=== PATIENT | female | born 1995 | race African-American/Black ===

== ENCOUNTER 2022-10-25 18:08 | Emergency (ER) | payer OTHER, SELFPAY ==
[2022-10-25 18:12] VITALS: BP 112/77; PULSE 65; RESP 18; TEMP 35.9; O2SAT 97; BMI 44.4
--- NOTE | 2022-10-25 18:37 | ED_ITS ---
HPI - General Adult General Time Seen by Provider: 18:37 Date Seen: 10/25/22 Chief complaint: Ear/Nose/Throat Problem Stated complaint: Swollen tonsils, throat issue Time Seen by Provider: 10/25/22 18:20 History of Present Illness HPI narrative: 27-year-old generally healthy female presents to the ER today with her fiance with concern for sore throat, inflamed, painful tonsils, and painful swallowing. She notes that she has had some mild trouble with swallowing for about a year so but in particular she has had a bad sore throat since this morning. She had mild sore throat yesterday and bad pain which she tried to swallow breakfast this morning. She looked at her throat with a flashlight and noticed that both of her tonsils were enlarged, reddened, and will had white spots on them. She has had some chills afternoon but no objective fevers. Really minimal cough but she eating that is more just coughing because all tonsils are large. No nasal congestion. No abdominal pain, nausea, vomiting. No rash. No known exposure t o strep. Her mother recently had bronchitis. She is otherwise healthy. No diabetes, malignancy, immunosuppression. No regular medications. Related Data Home Medications Medication Instructions Recorded Confirmed escitalopram oxalate 20 mg tablet 20 mg PO DAILY 10/25/22 10/25/22 (Lexapro) Allergies Allergy/AdvReac Type Severity Reaction Status Date / Time amoxicillin Allergy Mild Nausea Verified 10/25/22 18:17 Review of Systems Narrative: negative PFSH PFS Social History Smoking Status: Never smoker How often do you have a drink containing alcohol: 4 or more times a week AUDIT-C Alcohol total score: 4 Non-prescribed substance use: other Non-prescribed substance use details: delta 8 Exam Narrative: Exam Narrative: Constitutional: Appears well-developed and well-nourished. Alert. Conversant. Non toxic. HENT: Head: Atraumatic. Nose: Nose normal. Mouth/Throat: Oral mucosa is clear and moist. Tongue normal. Gums and dentition normal. no trismus. Uvula midline. Airway widely patent. Phonation normal. She has bilateral tonsillar enlargement with bilateral white exudates and bilateral tonsillar erythema. No petechiae or vesicles. No evidence for PERSONAL SECURITY SPECIALIST or RPA. Posterior wall of the oropharynx appears slightly erythematous but otherwise normal. Eyes: Conjunctivae normal. EOM normal. Pupils equal, round, and reactive to light. No scleral icterus. Neck: Normal range of motion. Neck supple. No tracheal deviation present. Cardiovascular: Normal rate, regular rhythm. No gallop. No friction rub. No murmur heard. Pulmonary/Chest: Effort normal. No stridor. No respiratory distress. No wheezes. No rales. No rhonchi . No tenderness. Abdominal: Soft. Bowel sounds normal. No distension. No mass. No tenderness. No HSM. No rebound. No guarding. Musculoskeletal: RUE: Normal range of motion. No tenderness. No deformity LUE: Normal range of motion. No tenderness. No deformity RLE: Normal range of motion. No edema. No tenderness. No deformity LLE: Normal range of motion. No edema. No tenderness. No deformity Lymph: No cervical adenopathy. Neurological: Alert and oriented to person, place, and time. Normal strength. CN II-VII intact. No sensory deficit. GCS eye subscore is 4. GCS verbal subscore is 5. GCS motor subscore is 6. Normal coordination Skin: Skin is warm and dry. No rash noted. No pallor. Normal capillary refill. Psychiatric: Normal mood. Normal affect. Const: Vital Signs, click to edit/add: Vital Signs - 24 hr 10/25/22 18:12 Temperature 96.7 F L Pulse Rate [Pulse Oximeter] 65 Respiratory Rate 18 Blood Pressure [Ri ght Upper Arm] 112/77 Pulse Oximetry 97 Oxygen Delivery Me thod Room Air Course Vital Signs Vital signs: Initial Vital Signs Temperature 96.7 F L 10/25/22 18:12 Temperature Source Temporal Artery Scan 10/25/22 18:12 Pulse Rate 65 10/25/22 18:12 Pulse Rhythm Regular 10/25/22 18:12 Respiratory Rate 18 10/25/22 18:12 Blood Pressure 112/77 10/25/22 18:12 Blood Pressure Mean 88 10/25/22 18:12 Blood Pressure Position Sitting 10/25/22 18:12 Pulse Oximetry 97 10/25/22 18:12 Oxygen Delivery Method Room Air 10/25/22 18:12 Vital Signs Temperature 96.7 F L 10/25/22 18:12 Pulse Rate 65 10/25/22 18:12 Respiratory Rate 18 10/25/22 18:12 Blood Pressure 112/77 10/25/22 18:12 Pulse Oximetry 97 10/25/22 18:12 Oxygen Delivery Method Room Air 10/25/22 18:12 Temperature 96.7 F L 10/25/22 18:12 Pulse Rate 65 10/25/22 18:12 Respiratory Rate 18 10/25/22 18:12 Blood Pressure 112/77 10/25/22 18:12 Pulse Oximetry 97 10/25/22 18:12 Oxygen Delivery Method Room Air 10/25/22 18:12 Medical Decision Making MDM Narrative Medical decision making narrative: This patient presented with sore throat and clinical evidence of pharyngitis. She has bilateral tonsillar erythema with exudate. She does not have ?kissing? tonsils or any signs of airway compromise. The rapid strep test is negative, and formal culture has been set up in the lab. There is no clinical evidence of peritonsillar abscess, retropharyngeal abscess, Lemierre's Syndrome, epiglottis, or Franck's angina. The etiology is most likely viral. No other vescular lesions to suggest HFM. The patient's symptoms are consistent with viral pharyngitis. I have recommended treatment with analgesics, and we will await formal culture results. If the culture is positive, an ED physician will call the patient to initiate anti-microbial therapy. Return if increasing pain, change in voice, neck pain, vomiting, fever, or shortness of breath. Follow-up with primary physician if not improving in 3-5 days. Lab Data Labs: Lab Results 10/25/22 Range/Units Unknown Group A Strep DNA NOT DETECTED (Not Detectd) Discharge Plan Discharge Clinical Impression: Pharyngitis Patient Disposition: Home, Self-Care Condition: Stable Instructions: Pharyngitis (ED) Additional Instructions: Please come back to the ER right away if you have worsening swelling in her tonsils, difficulty swallowing, high fever, trouble breathing, or other concerns. If your not complete the improved within 3-5 days, please recheck with the ER or with your regular doctor. Activity Level: No Restrictions Prescriptions: No Action escitalopram oxalate [Lexapro] 20 mg tablet 20 mg PO DAILY Follow Up/Referrals: Provider,Not a Local [Primary Care Provider] - Stand Alone Forms: [employer] Info Instructions
[2022-10-25 19:08] LABS: Strep A DNA Probe* NOT DETECTED (Not Detectd)
== END 2022-10-25 20:16 | disposition home or self-care (01) ==
PROVIDERS: Emergency Provider Emergency Medicine
DX: J02.9 Acute pharyngitis, unspecified (principal)
CPT/HCPCS: 87651; 99282; 99283

== ENCOUNTER 2024-06-04 20:50 | Outpatient (CLI) | payer OTHER, SELFPAY ==
[2024-06-04 21:40] VITALS: BP 135/65; PULSE 93; RESP 18; TEMP 36.6
[2024-06-04] MEDS: ACETAMINOPHEN 500 MG TABLET 1000 MG PO (22:17)
[2024-06-04] MEDS: ONDANSETRON ODT 4 MG TAB PO (22:17)
[2024-06-04 22:26] LABS: Appearance Urine Slightly Cloudy (Clear); Bilirubin Urine Negative (Negative); Blood Urine Negative (Negative); Color Urine Yellow (Yellow); Glucose Urine Negative (Negative); Ketones Urine Trace (Negative); Leukocyte Esterase Urine Negative (Negative); Nitrite Urine Negative (Negative); Protein Urine 1+ (Negative); Urobilinogen Urine 0.2 (0.2-1.0); pH Urine 7.5 (5.0-8.5)
[2024-06-04 22:33] LABS: Clue Cells No Clue Cells Seen (None Seen); Trichomonas No Trichomonas Seen (None Seen); Yeast No Yeast Seen (None Seen)
[2024-06-04 22:33] LABS: Amorphous Sediment Urine Many; Bacteria Urine Many; RBC Urine 0-2 (0-2); Squamous Epithelial Cell Urine Many (None-Few); WBC Urine 0-2 (0-5)
--- NOTE | 2024-06-04 23:29 | PC.OBNST ---
NST Note NST Note Start: 06/04/24 21:08 Freq: ONCE Status: Active Protocol: Document 06/04/24 23:27 MARIUM (Rec: 06/04/24 23:29 MRAIUM [id number]) NST Note 1 EDC 09/14/24 Gestational Age In Weeks & Days 25 Weeks & 3 Days Patient Presented with Complaint(s) of Pain,Nausea and vomiting If Pain, describe location Vaginal pain on and off for past several weeks Other Complaints Nausea and vomiting since start of . Appropriate for Gestational Age Yes CHARAN Daniels RN Date 06/04/24 Appropriate for Gestational Age Yes CHARAN Bolanos MD Date 06/04/24 OB NST charge No Complete NST Note via Write Note Yes The provider's electronic signature indicates the NST is reactive/appropriate for gestational age. *Note to provider: If an addendum is required, open the patient's chart and click on the note under the Nurse/Allied Health tab.
--- NOTE | 2024-07-03 17:46 | PC.OBNST ---
NST Note NST Note Start: 06/04/24 21:08 Freq: ONCE Status: Discharge Protocol: Document 06/04/24 23:27 MARIUM (Rec: 06/04/24 23:29 MARIUM [id number]) NST Note 1 EDC 09/14/24 Gestational Age In Weeks & Days 25 Weeks & 3 Days Patient Presented with Complaint(s) of Pain,Nausea and vomiting If Pain, describe location Vaginal pain on and off for past several weeks Other Complaints Nausea and vomiting since start of . Appropriate for Gestational Age Yes RN Kurt Daniels RN Date 06/04/24 Appropriate for Gestational Age Yes CHARAN Bolanos MD Date 06/04/24 OB NST charge Yes Complete NST Note via Write Note Yes The provider's electronic signature indicates the NST is reactive/appropriate for gestational age. *Note to provider: If an addendum is required, open the patient's chart and click on the note under the Nurse/Allied Health tab.
== END 2024-06-04 23:06 | disposition home or self-care (01) ==
LOC: OB OUT 20:53 → OB 21:05
PROVIDERS: PCP Student in an Organized Health Care Education/Training Program; Visit Provider Surgery
DX: O26.893 Other specified pregnancy related conditions, third trimester (principal); R11.2 Nausea with vomiting, unspecified; R10.2 Pelvic and perineal pain; Z3A.25 25 weeks gestation of pregnancy
CPT/HCPCS: 59025; 81001; 81003; 87086; 87210; G0463; A9270

== ENCOUNTER 2024-07-02 00:56 | Observation (INO) | payer OTHER, SELFPAY ==
[2024-07-01] VITALS (7 sets, daily range): BP systolic 130–147; BP diastolic 78–96; PULSE 86–102; TEMP 36.9; O2SAT 96
[2024-07-01 23:06] LABS: Blood Urea Nitrogen* 8 mg/dL (5-24); Creatinine* 0.6 mg/dL (0.5-1.5); Estimated Glomerular Filt Rate 126 ml/min; Hematocrit 35.5 % (33.0-51.0); Hemoglobin* 12.1 gm/dL (12.0-16.0); Mean Corpuscular HGB Conc 34 gm/dL (32-36); Mean Corpuscular Hemoglobin 29 pg (26-34); Mean Corpuscular Volume 85 fL (80-100); Platelet Count* 267 K/uL (140-440); Red Blood Count 4.16 m/uL (4.00-5.20); White Blood Count* 10.97 K/uL (4.50-11.00)
[2024-07-01 23:07] LABS: Alanine Aminotransferase* 24 U/L (4-35); Aspartate Amino Transferase* 29 U/L (12-35)
[2024-07-01 23:14] LABS: Slide Review Reflex No
[2024-07-02] VITALS (9 sets, daily range): BP systolic 119–146; BP diastolic 67–95; PULSE 86–98; RESP 16–20; TEMP 36.7–37.3; O2SAT 94–96
--- NOTE | 2024-07-02 00:21 | PM.OBLDTN ---
OB - Triage/Final Diagnosis Visit Information Time Seen by Provider: 00:21 Date Seen: 07/02/24 Narrative: The patient is a 29 year old 1 para 0 at 29+3 weeks gestation by 7 wk US, who presents with elevated blood pressures and pr/cr 1.5 early at routine clinic visit earlier today. complicated by the following: Patient was seen at 0745 this AM for routine care visit by Dr. Bethany Walsh, where she had BP 137/94 and 134/92, previously normotensive. Evaluation Laboratory results: Laboratory Tests 07/01/24 Range/Units 22:38 WBC 10.97 (4.50-11.00) K/uL RBC 4.16 (4.00-5.20) m/uL Hgb 12.1 (12.0-16.0) gm/dL Hct 35.5 (33.0-51.0) % MCV 85 (80-100) fL MCH 29 (26-34) pg MCHC 34 (32-36) gm/dL Plt Count 267 (140-440) K/uL BUN 8 (5-24) mg/dL Creatinine 0.6 (0.5-1.5) mg/dL Estimated GFR 126 ml/min AST 29 (12-35) U/L ALT 24 (4-35) U/L Vital signs: Vital Signs - 24 hr 07/01/24 21:47 07/01/24 21:54 07/01/24 21:54 Temperature Pulse Rate 93 Blood Pressure 147/90 H Pulse Oximetry 96 07/01/24 21:54 07/01/24 22:17 07/01/24 22:17 Temperature 98.4 F Pulse Rate 94 Blood Pressure 130/83 Pulse Oximetry 07/01/24 22:51 07/01/24 22:51 07/01/24 23:02 Temperature Pulse Rate 101 H Blood Pressure 141/78 H 140/85 H Pulse Oximetry 07/01/24 23:02 07/01/24 23:18 07/01/24 23:18 Temperature Pulse Rate 86 90 Blood Pressure 134/86 Pulse Oximetry 07/01/24 23:32 07/01/24 23:32 Temperature Pulse Rate 102 H Blood Pressure 143/96 H Pulse Oximetry
--- NOTE | 2024-07-02 00:48 | P.OBHP_ITS ---
OB - H&P; HPI Antepartum History of Present Illness Time Seen by Provider: 00:48 Date Seen: 07/02/24 Chief complaint: Maternity Narrative: Alma Scott is a 29 year old female at 29+3 weeks by 7 wk US who presents with elevated blood pressures and proteinuria. complicated by the followin. Pre-gestational prediabetes. 1hr GTT 144 at 26w2d, 3h GTT normal (88,157,120,78) at 28w2d 2. Pre- BMI of 44. MPP on 04/29/2024. Follow-up growth US at 28 and 34-36 week and testing starting at 34 weeks. 3. Anxiety/depression. On venlafaxine and buspirone. Follows with psychiatry, had e-consult with psych in early . 4. Elevated BP with upward trend since 20 weeks. Elevated urine protein/creatinine ratio (0.4) at 20 wks, normal 24 hour urine, normal Ast/ALT/plt 5. Family history of congenital hearing loss. Routine hearing screening with early referral if fails. She was seen earlier today for routine visit by Dr. Bethany Walsh, at which time her blood pressures were 137/94 and 134/92, previously normotensive. Asymptomatic. Pre-eclampsia labs were collected, and her protein/creatinine ratio came back at 1.5 this evening. She was contacted by Dr. Walsh and directed to the Center for further evaluation. Here, she noted an about 10 minute episode of loss of her left lateral vision. Describes a dark spot covering about half of her visual field, only on the left. Only other visual changes this have been seeing stars with vomiting. Completed resolved thereafter, and has not recurred. Denies BAKER, RUQ pain, new or worsening SOB, or edema. She has been experiencing normal movement. History of Present Dating criteria: based on 1st trimester US only care: good care complications: preeclampsia complications comment: Meeting BP criteria and proteinuria Labs Blood type: O (+) positive Rubella: immune RPR/VDLR: nonreactive HBsAG: negative Narrative: Failed GCT, passed all values of 3 hour Review of Systems Status of ROS: Reports: 10 or more systems reviewed and unremarkable except as noted in History and below Meds Home Medications and Allergies Home Medications ?Medication ?Instructions ?Recorded ?Confirmed ?Type venlafaxine 75 mg capsule,extended 225 mg PO DAILY 09/12/23 07/01/24 History release 24 hr docosahexaenoic acid 1 cap PO DAILY 03/27/24 07/01/24 History aspirin 81 mg tablet,delayed 81 mg PO DAILY 06/04/24 07/01/24 History release (Adult Aspirin Regimen) docusate sodium 100 mg capsule 100 mg PO DAILY 06/04/24 07/01/24 History (Colace) polyethylene glycol 3350 17 gram 17 g PO DAILY 06/04/24 07/01/24 History oral powder packet pyridoxine (vitamin B6) 100 mg 100 mg PO DAILY 06/04/24 07/01/24 History tablet buspirone 10 mg tablet 10 mg PO BID 07/01/24 07/01/24 History doxylamine succinate 25 mg tablet 12.5 mg PO Q6H PRN 07/01/24 07/01/24 History (Unisom (doxylamine)) famotidine 20 mg tablet (Pepcid) 20 mg PO DAILY 07/01/24 07/01/24 History Allergies Allergy/AdvReac Type Severity Reaction Status Date / Time amoxicillin Allergy Mild Nausea Verified 03/27/24 11:41 clarithromycin Allergy Verified 03/27/24 11:41 OB - H&P: Exam Physical Exam: Vital signs: Temp Pulse BP Pulse Ox 98.4 F 102 H 143/96 H 96 07/01/24 21:54 07/01/24 23:32 07/01/24 23:32 07/01/24 21:47 Narrative: General appearance: Well-appearing adult female. Alert, oriented and appropriate. Sitting up in hospital bed. HEENT: EOMI, no conjunctival injection or discharge. MMM. Neck: Supple. CV: RRR, no rubs, murmurs or extra heart sounds. Pulm: CTAB, no wheezes, rales or rhonchi. Abdomen: Gravid. MSK: Moving all extremities. Ext: Warm and well-perfused. No LE edema. Skin: No rashes appreciated over exposed skin. Neuro: Grossly normal strength and sensation. No focal deficits. Patellar reflexes brisk. One beat of clonus in ankles bilaterally. Psych: Normal affect. Fetus (Single): Amniotic Membrane Status: intact Heart Rate Baseline: 125 Monitor Accelerations: Present (10x10) Monitor Decelerations: None Road Oiling Truck Driver Variability: Moderate (6-25) OB - Results Labs Labs: Short CBC 07/01/24 Range/Units 22:38 WBC 10.97 (4.50-11.00) K/uL Hgb 12.1 (12.0-16.0) gm/dL Hct 35.5 (33.0-51.0) % Plt Count 267 (140-440) K/uL BMP 07/01/24 22:38 BUN 8 Creatinine 0.6 Liver Function 07/01/24 Range/Units 22:38 AST 29 (12-35) U/L ALT 24 (4-35) U/L OB - A/P Antepartum Assessment and Plan (1) Pre-eclampsia during in third trimester, antepartum: Status: Acute Plan Meeting criteria for pre-eclampsia w/o severe features based on blood pressures and new proteinuria. Elevated pr/cr with new OB labs (0.4), but normal 24 hour urine, now with significant proteinuria (pr/cr 1.5). Remaining pre-eclampsia labs WNL. Episode of transient L lateral visual field deficit lasting about 10 minutes, now resolved. Denies BAKER, ongoing visual change or other neurologic symptoms. On exam, reflexes are brisk with one beat of clonus in ankles bilaterally. monitoring is reassuring. Discussed with ammonia refrigeration worker perinatologist, Dr. Stark. She feels that patient is not currently meeting criteria for severe features. Recommends 24 hour obs admission for further BP monitoring and for any progression of neurologic symptoms. Discussed with patient, who is in agreement. - Admit to obs - Q4 hour vitals and nursing assessments - Repeat pre-eclampsia labs in 12 hours - Initiate 24 hour urine collection - IV betamethasone x2 doses - NST TID - If any change in status meeting criteria for severe features, would initiate IV mag and arrange transfer to tertiary care facility
[2024-07-02] MEDS: BETAMETHASONE SOD PHOS/ACETATE 6 MG/ML ML 12 MG IM (01:44)
[2024-07-02 01:54] LABS: Total Protein Urine 16 mg/dL
[2024-07-02 01:55] LABS: Creatinine Urine 120.1 mg/dL; Protein Creatinine Ratio Urine 0.13 (0-0.19)
--- NOTE | 2024-07-02 01:58 | PC.OBNST ---
NST Note NST Note Start: 07/01/24 21:49 Freq: TID Status: Active Protocol: Document 07/02/24 01:56 AZUL (Rec: 07/02/24 01:58 AZUL No Response) NST Note 1 Para (# of births) 0 EDC 09/14/24 Gestational Age In Weeks & Days 29 Weeks & 3 Days High Risk Factors High Blood Pressure - Gestational Patient Presented with Complaint(s) of Other Other Complaints Elevated PCR in the clinic; elevated home blood pressures Reactive Yes Appropriate for Gestational Age Yes CHARAN Barrera, RN Date 07/02/24 Reactive Yes Appropriate for Gestational Age Yes CHARAN Mendoza RN Date 07/02/24 OB NST charge Yes Complete NST Note via Write Note Yes The provider's electronic signature indicates the NST is reactive/appropriate for gestational age. *Note to provider: If an addendum is required, open the patient's chart and click on the note under the Nurse/Allied Health tab.
[2024-07-02 10:16] LABS: Hematocrit 39.2 % (33.0-51.0); Hemoglobin* 13.2 gm/dL (12.0-16.0); Mean Corpuscular HGB Conc 34 gm/dL (32-36); Mean Corpuscular Hemoglobin 29 pg (26-34); Mean Corpuscular Volume 85 fL (80-100); Platelet Count* 288 K/uL (140-440); Red Blood Count 4.59 m/uL (4.00-5.20); White Blood Count* 10.43 K/uL (4.50-11.00)
[2024-07-02 10:22] LABS: Slide Review Reflex No
[2024-07-02 10:24] LABS: Alanine Aminotransferase* 33 U/L (4-35); Aspartate Amino Transferase* 32 U/L (12-35); Blood Urea Nitrogen* 6 mg/dL (5-24); Creatinine* 0.6 mg/dL (0.5-1.5); Estimated Glomerular Filt Rate 126 ml/min
--- NOTE | 2024-07-02 12:20 | PC.OBNST ---
NST Note NST Note Start: 07/01/24 21:49 Freq: TID Status: Active Protocol: Document 07/02/24 12:18 BRM (Rec: 07/02/24 12:20 BRM No Response) NST Note 1 Para (# of births) 0 EDC 09/14/24 Gestational Age In Weeks & Days 29 Weeks & 3 Days Patient Presented with Complaint(s) of Other Other Complaints Patient here for observation, due to possible pre-eclampsia Reactive Yes Appropriate for Gestational Age Yes CHARAN Kamara Date 07/02/24 Reactive Yes Appropriate for Gestational Age Yes CHARAN Ho Date 07/02/24 OB NST charge Yes Complete NST Note via Write Note Yes The provider's electronic signature indicates the NST is reactive/appropriate for gestational age. *Note to provider: If an addendum is required, open the patient's chart and click on the note under the Nurse/Allied Health tab.
--- NOTE | 2024-07-02 15:08 | CRLHL7_ITS ---
For Patients: As a result of the Century Cures Act, medical imaging exams and procedure reports are released immediately into your electronic medical record. You may view this report before your referring provider. If you have questions, please contact your health care provider. Indication: Visual field deficit. Technique: Multiplanar multisequence noncontrast MR images of the brain. Comparison: None. Findings: The ventricles and sulci are within normal limits for patient age. No mass effect or midline shift. No parenchymal signal abnormalities. No intracranial hemorrhage or pathologic extra-axial fluid collection. No diffusion restriction to suggest acute infarction The major arterial flow voids of the skull base are preserved. The globes are symmetric. Minimal ethmoid sinus mucosal thickening. Trace left mastoid fluid. Impression: Unremarkable noncontrast MRI of the brain. Dictated by Jose Choudhary MD @ 07/02/2024 5:04:18 PM (Electronically Signed)
--- NOTE | 2024-07-02 16:54 | PM.FPPN ---
Progress Note: A&P Assessment and plan (1) Pre-eclampsia during in third trimester, antepartum: Problem details: Preeclampsia without severe features at this time. Status: Acute Assessment and Plan: I have discussed with perinatology. - recommend 24 hours of monitoring BP and labs - low threshold to transfer with any severe features - repeat labs at 10pm tonight (2) Alteration in vision: Problem details: Unclear history. Status: Acute Assessment and Plan: - MRI brain per perinatology (3) with 29 completed weeks gestation: Problem details: Betamethasone given last night, will get 2nd dose tonight. Status: Acute Plan - will stay until at least morning 07/03 Time Spent With Patient Total time spent: 60 minutes spent with patient and coordination of care Subjective Subjective Time Seen by Provider: 07:30 Date Seen: 07/02/24 Principal diagnosis: Preeclampsia Interval history: Patient reports no headache, vision changes. She feels well. Some edema. She slept off and on overnight. She is tired. Patient describes visual field cut as missing part of left outside vision. She has not had recurrence of this (had 10-15 minutes of this en route to hospital) Exam Const: Vital Signs, click to edit/add: Vital Signs - 24 hr 07/01/24 21:47 07/01/24 21:54 07/01/24 21:54 Temperature Pulse Rate 93 Respiratory Rate Blood Pressure 147/90 H Pulse Oximetry 96 07/01/24 21:54 07/01/24 22:17 07/01/24 22:17 Temperature 98.4 F Pulse Rate 94 Respiratory Rate Blood Pressure 130/83 Pulse Oximetry 07/01/24 22:51 07/01/24 22:51 07/01/24 23:02 Temperature Pulse Rate 101 H Respiratory Rate Blood Pressure 141/78 H 140/85 H Pulse Oximetry 07/01/24 23:02 07/01/24 23:18 07/01/24 23:18 Temperature Pulse Rate 86 90 Respiratory Rate Blood Pressure 134/86 Pulse Oximetry 07/01/24 23:32 07/01/24 23:32 07/02/24 01:00 Temperature 98.2 F Pulse Rate 102 H Respiratory Rate Blood Pressure 143/96 H Pulse Oximetry 07/02/24 01:15 07/02/24 05:12 07/02/24 05:12 Temperature 98.1 F Pulse Rate 86 90 Respiratory Rate Blood Pressure 145/95 H 119/67 Pulse Oximetry 07/02/24 08:29 07/02/24 08:29 07/02/24 08:34 Temperature 98.9 F Pulse Rate 93 Respiratory Rate 16 Blood Pressure 134/88 Pulse Oximetry 95 07/02/24 12:56 07/02/24 12:57 07/02/24 12:57 Temperature 98.1 F Pulse Rate 91 Respiratory Rate 16 Blood Pressure 142/72 H Pulse Oximetry 94 96 Documenting provider has reviewed patient's vital signs: yes Common normals: no apparent distress, oriented x3 and alert General appearance: cooperative and well kempt Orientation/consciousness: Yes awake HENMT: Common normals: normocephalic Head and scalp: normocephalic Neck & C-Spine: Common normals: full ROM Resp: Common normals: normal respiratory effort and clear to auscultation bilaterally Auscultation: clear to auscultation bilaterally Cardio: Common normals: regular rate, regular rhythm and no murmurs Rate: regular rate Rhythm: regular rhythm GI: Common normals: soft to palpation, non-tender and no hepatosplenomegaly Palpation: soft and no hepatosplenomegaly Other: Gravid Neuro: Common normals: oriented x3 Sensorium/orientation: awake and alert Psych: Appearance: well kempt Skin: Rashes: no rashes
[2024-07-02 20:08] LABS: Hematocrit 38.1 % (33.0-51.0); Hemoglobin* 12.8 gm/dL (12.0-16.0); Mean Corpuscular HGB Conc 34 gm/dL (32-36); Mean Corpuscular Hemoglobin 29 pg (26-34); Mean Corpuscular Volume 86 fL (80-100); Platelet Count* 298 K/uL (140-440); Red Blood Count 4.44 m/uL (4.00-5.20); White Blood Count* 12.69 K/uL (4.50-11.00)
[2024-07-02 20:23] LABS: Alanine Aminotransferase* 31 U/L (4-35); Aspartate Amino Transferase* 36 U/L (12-35); Blood Urea Nitrogen* 10 mg/dL (5-24); Creatinine* 0.6 mg/dL (0.5-1.5); Estimated Glomerular Filt Rate 126 ml/min
[2024-07-02 20:28] LABS: Slide Review Reflex No
--- NOTE | 2024-07-02 21:43 | PC.OBNST ---
NST Note NST Note Start: 07/01/24 21:49 Freq: TID Status: Active Protocol: Document 07/02/24 21:42 AZUL (Rec: 07/02/24 21:42 AZUL Desktop) NST Note 1 Para (# of births) 0 EDC 09/14/24 Gestational Age In Weeks & Days 29 Weeks & 3 Days High Risk Factors High Blood Pressure - Gestational Patient Presented with Complaint(s) of Other Other Complaints Patient here for observation, due to possible pre-eclampsia Reactive Yes Appropriate for Gestational Age Yes CHARAN Barrera, RN Date 07/02/24 Reactive Yes Appropriate for Gestational Age Yes CHARAN Alvarenga RN Date 07/02/24 OB NST charge Yes Complete NST Note via Write Note Yes The provider's electronic signature indicates the NST is reactive/appropriate for gestational age. *Note to provider: If an addendum is required, open the patient's chart and click on the note under the Nurse/Allied Health tab.
[2024-07-03] VITALS (7 sets, daily range): BP systolic 127–145; BP diastolic 79–97; PULSE 81–94; TEMP 36.9–37.2; O2SAT 94–95
[2024-07-03 01:34] LABS: Total Protein Urine 12 mg/dL
[2024-07-03 01:35] LABS: Creatinine Urine 63.1 mg/dL; Protein Creatinine Ratio Urine 0.19 (0-0.19)
[2024-07-03 01:40] LABS: Collection Time Urine 24 Hours; Total Volume 24 Hour Urine 2450 ml; Urine Creatinine mg/24 Hour 1546 mg/Day
[2024-07-03] MEDS: BETAMETHASONE SOD PHOS/ACETATE 6 MG/ML ML 12 MG IM (01:47)
--- NOTE | 2024-07-03 02:35 | PC.OBNST ---
NST Note NST Note Start: 07/01/24 21:49 Freq: TID Status: Active Protocol: Document 07/03/24 02:35 [id number] (Rec: 07/03/24 02:35 AZUL Desktop) NST Note 1 Para (# of births) 0 EDC 09/14/24 Gestational Age In Weeks & Days 29 Weeks & 4 Days High Risk Factors High Blood Pressure - Gestational Patient Presented with Complaint(s) of Other Other Complaints Patient here for observation, due to possible pre-eclampsia Reactive Yes Appropriate for Gestational Age Yes CHARAN Barrera, RN Date 07/03/24 Reactive Yes Appropriate for Gestational Age Yes CHARAN Mendoza RN Date 07/03/24 OB NST charge Yes Complete NST Note via Write Note Yes The provider's electronic signature indicates the NST is reactive/appropriate for gestational age. *Note to provider: If an addendum is required, open the patient's chart and click on the note under the Nurse/Allied Health tab.
[2024-07-03 06:32] LABS: Hematocrit 36.8 % (33.0-51.0); Hemoglobin* 12.2 gm/dL (12.0-16.0); Mean Corpuscular HGB Conc 33 gm/dL (32-36); Mean Corpuscular Hemoglobin 29 pg (26-34); Mean Corpuscular Volume 86 fL (80-100); Platelet Count* 272 K/uL (140-440); Red Blood Count 4.26 m/uL (4.00-5.20); White Blood Count* 12.08 K/uL (4.50-11.00)
[2024-07-03 06:33] LABS: Slide Review Reflex No
[2024-07-03 07:07] LABS: Alanine Aminotransferase* 27 U/L (4-35); Aspartate Amino Transferase* 28 U/L (12-35); Creatinine* 0.6 mg/dL (0.5-1.5); Estimated Glomerular Filt Rate 126 ml/min
--- NOTE | 2024-07-03 09:51 | CRLHL7_ITS ---
For Patients: As a result of the Century Cures Act, medical imaging exams and procedure reports are released immediately into your electronic medical record. You may view this report before your referring provider. If you have questions, please contact your health care provider. Indication: Abnormal non stress test. Technique: Sonography of the gravid uterus was performed. The study was performed limited to a biophysical profile as discussed below Comparison: No prior relevant examinations Findings: The cervix was not visualized. position is breech. The single deepest pocket is 4.6 centimeters. The placenta is anterior. There is no apparent previa The biophysical profile score is abnormal. The score is 4/8. Zero points for gross body movements and also for respiratory activity. heart rate is 129 beats per minute. Placental S/D ratios are 2.4 and 2.6. Less than 4 is considered normal at this gestational age. Gestational age stated by LMP 29 weeks and 4 days. Biometry and anatomy was not repeated on this exam Impression: 1. Single live intrauterine that is breech. heart rate is 129 beats per minute. 2. The single deepest pocket is 4.6 centimeters. 3. Anterior placenta. 4. Normal placenta S/D ratios 5. The biophysical profile score is 4/8. Zero points for gross body movements and also for respiratory activity. 6. The cervix was not visualized. Dictated by Onur Castillo MD @ 07/03/2024 11:02:36 AM (Electronically Signed)
[2024-07-03] MEDS: LABETALOL HCL 100 MG TABLET 200 MG PO (10:06)
--- NOTE | 2024-07-03 10:31 | P.DS_ITS ---
DS: Providers Provider Date of admission: 07/02/24 00:56 Primary care physician: Bethany Walsh MD Admitting Clinician: Tana Lamas MD Attending Physician on discharge: Tana Lamas MD DS: Diagnosis Discharge Diagnosis (1) Pre-eclampsia during in third trimester, antepartum: Status: Acute Problem details: Preeclampsia without severe features at this time. (2) Alteration in vision: Status: Acute Problem details: Unclear history. (3) with 29 completed weeks gestation: Status: Acute Problem details: Betamethasone given last night, will get 2nd dose tonight. Discharge Plan Discharge Disposition: Home, Self-Care Date of Admission: 07/02/24 00:56 Primary Care Provider: Bethany Walsh Condition: Stable Anticipated Discharge Date/Time: 07/03/24 12:00 Discharge Medications: New labetalol 100 mg Tablet 200 mg PO BID Qty: 60 0RF Continued venlafaxine 75 mg capsule,extended release 24hr 225 mg PO DAILY docosahexaenoic acid [ DHA] 1 cap PO DAILY ondansetron 4 mg tablet,disintegrating 4 mg PO Q8H PRN (Reason: nausea and vomiting) Qty: 20 0RF buspirone 10 mg tablet 10 mg PO BID famotidine [Pepcid] 20 mg tablet 20 mg PO DAILY Unisom (doxylamine) 25 mg tablet 12.5 mg PO Q6H PRN aspirin [Adult Aspirin Regimen] 81 mg tablet,delayed release (DR/EC) 81 mg PO DAILY polyethylene glycol 3350 17 gram powder in packet 17 g PO DAILY docusate sodium [Colace] 100 mg capsule 100 mg PO DAILY pyridoxine (vitamin B6) 100 mg tablet 100 mg PO DAILY Discharge Orders: Discharge Order (Routine); Ordered 07/03/24 Ordered By: Akiko Sanches Patient Education: Hypertension During (DC) Follow Up Appointments: Bethany Walsh MD [Primary Care Provider] - Forms: [employer] Info Instructions Discharge Comments: schedule follow up with Dr. Walsh in 1 week. Check blood pressure at home twice a day. If above 160/110, please call. Monitor for pre-eclampsia symptoms as we discussed including headache, vision changes, right sided abdominal pain, or sudden changes in swelling. If you have decreased movement, vaginal bleeding, or leaking fluid, please call. Hospital Course Labs Labs: Laboratory Tests 07/03/24 07/03/24 07/02/24 Range/Units 06:15 01:08 20:03 WBC 12.08 H 12.69 H (4.50-11.00) K/uL RBC 4.26 4.44 (4.00-5.20) m/uL Hgb 12.2 12.8 (12.0-16.0) gm/dL Hct 36.8 38.1 (33.0-51.0) % MCV 86 86 (80-100) fL MCH 29 29 (26-34) pg MCHC 33 34 (32-36) gm/dL Plt Count 272 298 (140-440) K/uL BUN 10 (5-24) mg/dL Creatinine 0.6 0.6 (0.5-1.5) mg/dL Estimated GFR 126 126 ml/min AST 28 36 H (12-35) U/L ALT 27 31 (4-35) U/L Urine Collection Time 24 Hours Ur 24 Hour Volume 2450 ml Urine Creatinine 63.1 mg/dL Ur Total Protein 24 Hr 294.0 mg/Day Protein/Creatinin Ratio 0.19 (0-0.19) Ur Creatine 24 Hour 1546 mg/Day Urine Total Protein 12 mg/dL 07/02/24 07/02/24 07/01/24 Range/Units 10:01 01:28 22:38 WBC 10.43 10.97 (4.50-11.00) K/uL RBC 4.59 4.16 (4.00-5.20) m/uL Hgb 13.2 12.1 (12.0-16.0) gm/dL Hct 39.2 35.5 (33.0-51.0) % MCV 85 85 (80-100) fL MCH 29 29 (26-34) pg MCHC 34 34 (32-36) gm/dL Plt Count 288 267 (140-440) K/uL BUN 6 8 (5-24) mg/dL Creatinine 0.6 0.6 (0.5-1.5) mg/dL Estimated GFR 126 126 ml/min AST 32 29 (12-35) U/L ALT 33 24 (4-35) U/L Urine Collection Time Hours Ur 24 Hour Volume ml Urine Creatinine 120.1 mg/dL Ur Total Protein 24 Hr mg/Day Protein/Creatinin Ratio 0.13 (0-0.19) Ur Creatine 24 Hour mg/Day Urine Total Protein 16 mg/dL OB Problem List Additional Plan (1) Pre-eclampsia during in third trimester, antepartum: Problem details: Preeclampsia without severe features at this time. Status: Acute (2) Alteration in vision: Problem details: Unclear history. Status: Acute (3) with 29 completed weeks gestation: Problem details: Betamethasone given last night, will get 2nd dose tonight. Status: Acute DS: Summary Vital Signs Vital Signs: Vital Signs Temp Pulse Resp BP Pulse Ox 07/03/24 08:06 94 07/03/24 08:05 81 145/93 H 95 07/03/24 06:26 86 145/95 H 07/03/24 01:56 98.5 F 07/03/24 01:49 93 145/97 H 07/02/24 21:09 90 143/90 H 07/02/24 17:06 99.2 F 20 07/02/24 17:06 98 146/79 H 95 07/02/24 12:57 98.1 F 16 07/02/24 12:57 91 142/72 H 96 07/02/24 12:56 94
--- NOTE | 2024-07-03 11:48 | P.OBT_ITS ---
History of Present Illness History of Present Illness Date Seen: 07/03/24 History of Present Illness: Alma Scott is a 29 year old female at 29+4 weeks by 7 wk US who was seen in clinic on 07/01/24 and noted to have elevated BP and proteinuria. She was subsequently sent to [facility] for additional evaluation and arrived to the unit in the early hours of 07/02/24. complicated by the followin.Pre-gestational prediabetes. 1hr GTT 144 at 26w2d, 3h GTT normal (88,157,120,78) at 28w2d 2.Pre- BMI of 44. MPP on 04/29/2024. Follow-up growth US at 28 and 34-36 week and testing starting at 34 weeks. 3.Anxiety/depression. On venlafaxine and buspirone. Follows with psychiatry, had e-consult with psych in early . 4.Elevated BP with upward trend since 20 weeks. Elevated urine protein/creatinine ratio (0.4) at 20 wks, normal 24 hour urine, normal Ast/ALT/plt 5.Family history of congenital hearing loss. Routine hearing screening with early referral if fails. She was seen 07/01 for routine visit by Dr. Bethany Walsh, at which time her blood pressures were 137/94 and 134/92, previously normotensive. Asymptomatic. Pre-eclampsia labs were collected, and her protein/creatinine ratio came back at 1.5 later that evening. She was contacted by Dr. Walsh and directed to the Center for further evaluation. When she arrived, she noted an about 10 minute episode of loss of her left lateral vision. Describes a dark spot covering about half of her visual field, only on the left. Only other visual changes this have been seeing stars with vomiting. Completed resolved thereafter, and has not recurred. Denies BAKER, RUQ pain, new or worsening SOB, or edema. She has been experiencing normal movement, no vaginal bleeding, no LOF. . Repeat labs obtained at time of admission were normal, including normal urine protein/creatinine ratio. Because of this discrepancy, 24-hour urine collection was initiated. Labs remained normal throughout her admission. Blood pressures were consistently in the 140s/90s and patient remained asymptomatic without return of visual changes or development of new symptoms. She was noted to have clonus on her exam as well as brisk reflexes. Brain MRI on 07/02 was normal. Spoke with Dr. Spence on morning of 07/03/24 who suggested discharge and outpatient monitoring with weekly labs and initiation of labetalol 200 mg BID. Following our phone call, I received notification that morning NST was nonreactive. Upon review, FHR baseline 135, no accelerations, few variable decelerations, and moderate variability were noted. No uterine activity on tocometry. BPP was ordered for furter evaluation with score of 4/8, were zero points for gross body movement and breathing activity. Fetus in breech presentation. With this information, I again consulted with Dr. Spence who accepted patient for transfer to [facility]. She did receive one dose of labetalol 200 mg at 10:06 AM. Additionally, she received two doses of BMTZ on 07/02 and 07/03. Discussed transfer with patient, who was agreeable. However, patient declined ambulance transport, citing financial concerns. Discussed risks including, but not limited to eclamptic seizures, maternal , or . Patient and her partner expressed understanding. AMA paperwork was signed. Directed her to present to [facility]. Baby moving naturally: Yes Bleeding: No Contractions: No Leaking fluid: No Discharge: No Heartburn: No Back pain: No Meds Home Medications and Allergies Home Medications ?Medication ?Instructions ?Recorded ?Confirmed ?Type venlafaxine 75 mg capsule,extended 225 mg PO DAILY 09/12/23 07/01/24 History release 24 hr docosahexaenoic acid 1 cap PO DAILY 03/27/24 07/01/24 History aspirin 81 mg tablet,delayed 81 mg PO DAILY 06/04/24 07/01/24 History release (Adult Aspirin Regimen) docusate sodium 100 mg capsule 100 mg PO DAILY 06/04/24 07/01/24 History (Colace) polyethylene glycol 3350 17 gram 17 g PO DAILY 06/04/24 07/01/24 History oral powder packet pyridoxine (vitamin B6) 100 mg 100 mg PO DAILY 06/04/24 07/01/24 History tablet buspirone 10 mg tablet 10 mg PO BID 07/01/24 07/01/24 History doxylamine succinate 25 mg tablet 12.5 mg PO Q6H PRN 07/01/24 07/01/24 History (Unisom (doxylamine)) famotidine 20 mg tablet (Pepcid) 20 mg PO DAILY 07/01/24 07/01/24 History Allergies Allergy/AdvReac Type Severity Reaction Status Date / Time amoxicillin Allergy Mild Nausea Verified 03/27/24 11:41 clarithromycin Allergy Verified 03/27/24 11:41 [facility] Medical History (Updated 07/03/24 @ 12:23 by Akiko Sanches, ) Non-reactive NST (non-stress test) ?O28.8 - Other abnormal findings on screening of mother (ICD-10) Gestational hypertension ?O13.9 - Gestational [-induced] hypertension without significant proteinuria, unspecified trimester (ICD-10) Social History Smoking Status: Never smoker How often do you have a drink containing alcohol: 4 or more times a week AUDIT-C Alcohol total score: 4 Non-prescribed substance use: other Non-prescribed substance use details: delta 8 History History 1 Elective abortions Para 0 Spontaneous abortions Hx # Term Pregnancies Ectopic pregnancies Hx # Pregnancies Multiple births Number of Living Children 0 OB - H&P: Exam Physical Exam Vital signs: Temp Pulse Resp BP Pulse Ox 98.9 F 90 20 127/79 94 07/03/24 10:59 07/03/24 10:59 07/02/24 17:06 07/03/24 10:59 07/03/24 08:06 Constitutional Constitutional: no acute distress, obese and cooperative Routine HEENT Exam Head: Present atraumatic Eye: Absent conjunctival injection Routine Respiratory Exam Comments: Breathing comfortably on room air Routine Cardiovascular Exam Comments: Extremities warm and well perfused. Normal peripheral pulses. Routine Abdominal Exam Abdominal: Present soft; Absent distended, guarding or rebound Routine Neurological Exam Present alert and oriented X3; Absent clonus Comments: brisk patellar reflexes b/l, L > R. Results Labs Laboratory Tests 07/03/24 07/03/24 07/02/24 Range/Units 06:15 01:08 20:03 WBC 12.08 H 12.69 H (4.50-11.00) K/uL RBC 4.26 4.44 (4.00-5.20) m/uL Hgb 12.2 12.8 (12.0-16.0) gm/dL Hct 36.8 38.1 (33.0-51.0) % MCV 86 86 (80-100) fL MCH 29 29 (26-34) pg MCHC 33 34 (32-36) gm/dL Plt Count 272 298 (140-440) K/uL BUN 10 (5-24) mg/dL Creatinine 0.6 0.6 (0.5-1.5) mg/dL Estimated GFR 126 126 ml/min AST 28 36 H (12-35) U/L ALT 27 31 (4-35) U/L Urine Collection Time 24 Hours Ur 24 Hour Volume 2450 ml Urine Creatinine 63.1 mg/dL Ur Total Protein 24 Hr 294.0 mg/Day Protein/Creatinin Ratio 0.19 (0-0.19) Ur Creatine 24 Hour 1546 mg/Day Urine Total Protein 12 mg/dL 07/02/24 07/02/24 07/01/24 Range/Units 10:01 01:28 22:38 WBC 10.43 10.97 (4.50-11.00) K/uL RBC 4.59 4.16 (4.00-5.20) m/uL Hgb 13.2 12.1 (12.0-16.0) gm/dL Hct 39.2 35.5 (33.0-51.0) % MCV 85 85 (80-100) fL MCH 29 29 (26-34) pg MCHC 34 34 (32-36) gm/dL Plt Count 288 267 (140-440) K/uL BUN 6 8 (5-24) mg/dL Creatinine 0.6 0.6 (0.5-1.5) mg/dL Estimated GFR 126 126 ml/min AST 32 29 (12-35) U/L ALT 33 24 (4-35) U/L Urine Collection Time Hours Ur 24 Hour Volume ml Urine Creatinine 120.1 mg/dL Ur Total Protein 24 Hr mg/Day Protein/Creatinin Ratio 0.13 (0-0.19) Ur Creatine 24 Hour mg/Day Urine Total Protein 16 mg/dL Assessment and Plan Assessment and plan (1) with 29 completed weeks gestation: Problem comment: Betamethasone given last night, will get 2nd dose tonight. Status: Acute (2) Non-reactive NST (non-stress test): Status: Acute Mode of transport: Private Car Transfer to: [place] (3) Gestational hypertension: Status: Acute Total time spent Total time spent: 120 minutes in patient care, consultation with perinatology, and documentation on day of encounter
--- NOTE | 2024-07-03 14:03 | PC.OBNST ---
NST Note NST Note Start: 07/01/24 21:49 Freq: TID Status: Active Protocol: Document 07/03/24 12:10 HCR (Rec: 07/03/24 14:03 HCR [id number]) NST Note 1 Para (# of births) 0 EDC 09/14/24 Gestational Age In Weeks & Days 29 Weeks & 4 Days High Risk Factors High Blood Pressure - Gestational Patient Presented with Complaint(s) of Other Other Complaints Elevated BP's in clinic, PCR from [facility] 1.5, abnormal PreE assessment (see documentation) . BPP done 07/03 and baby scored 4/8, off for no practice breathing and no full body movements. Patient is transferring to [place] for further monitoring. Reactive No Appropriate for Gestational Age No CHARAN Scott, RN Date 07/03/24 Reactive No Appropriate for Gestational Age No CHARAN Dick, RN Date 07/03/24 OB NST charge Yes Complete NST Note via Write Note Yes The provider's electronic signature indicates the NST is reactive/appropriate for gestational age. *Note to provider: If an addendum is required, open the patient's chart and click on the note under the Nurse/Allied Health tab.
== END 2024-07-03 12:10 | disposition short-term general hospital (02) ==
LOC: OB OUT 00:56 → OB 01:14
PROVIDERS: Family Medicine; Admitting Provider Family Medicine; PCP Student in an Organized Health Care Education/Training Program; Visit Provider Family Medicine
DX: O14.93 Unspecified pre-eclampsia, third trimester (principal); O13.3 Gestational [pregnancy-induced] hypertension without significant proteinuria, third trimester; Z3A.29 29 weeks gestation of pregnancy; H54.7 Unspecified visual loss; R11.10 Vomiting, unspecified; F41.9 Anxiety disorder, unspecified; F32.A Depression, unspecified; Z82.2 Family history of deafness and hearing loss
CPT/HCPCS: 36415; 59025; 70551; 76819; 76820; 82565; 82570; 84156; 84450; 84460; 84520; 85027; 96372; 99199; G0463; A9270; G0378; G0379; J0702

== ENCOUNTER 2024-07-25 14:00 | Outpatient (RCR) | payer OTHER, SELFPAY | END 2024-11-22 23:59 | disposition home or self-care (01) | PROVIDERS: PCP Student in an Organized Health Care Education/Training Program; Visit Provider Student in an Organized Health Care Education/Training Program | DX: O26.892 Other specified pregnancy related conditions, second trimester (principal); R10.2 Pelvic and perineal pain; N39.46 Mixed incontinence; Z51.89 Encounter for other specified aftercare | CPT/HCPCS: 97140; 97162; 97530; 97535 ==

== ENCOUNTER 2024-07-26 11:24 | Outpatient (CLI) | payer OTHER, SELFPAY ==
[2024-07-26] VITALS (10 sets, daily range): BP systolic 105–121; BP diastolic 63–71; PULSE 84–99; RESP 16; TEMP 36.8; O2SAT 97
[2024-07-26 11:53] LABS: Hematocrit 39.9 % (33.0-51.0); Hemoglobin* 13.4 gm/dL (12.0-16.0); Mean Corpuscular HGB Conc 34 gm/dL (32-36); Mean Corpuscular Hemoglobin 29 pg (26-34); Mean Corpuscular Volume 86 fL (80-100); Platelet Count* 301 K/uL (140-440); Red Blood Count 4.66 m/uL (4.00-5.20); White Blood Count* 8.56 K/uL (4.50-11.00)
[2024-07-26 11:55] LABS: Slide Review Reflex No
[2024-07-26 12:18] LABS: Alanine Aminotransferase* 25 U/L (4-35); Aspartate Amino Transferase* 32 U/L (12-35); Blood Urea Nitrogen* 6 mg/dL (5-24); Creatinine* 0.6 mg/dL (0.5-1.5); Estimated Glomerular Filt Rate 126 ml/min
--- NOTE | 2024-07-26 14:17 | PC.OBNST ---
NST Note NST Note Start: 07/26/24 11:14 Freq: ONCE Status: Active Protocol: Document 07/26/24 14:15 BAW (Rec: 07/26/24 14:16 BAW No Response) NST Note 1 Para (# of births) 0 EDC 09/14/24 Gestational Age In 32 Weeks & 6 Days Weeks & Days High Risk Factors High Blood Pressure - Preexisting Patient Presented Other with Complaint(s) of Other Complaints Elevated BP's and blurry vision Reactive Yes Appropriate for Yes Gestational Age CHARAN Ornelas RNC Date 07/26/24 Reactive Yes Appropriate for Yes Gestational Age CHARAN Farias RN Date 07/26/24 OB NST charge Yes Complete NST Note Yes via Write Note The provider's electronic signature indicates the NST is reactive/appropriate for gestational age. *Note to provider: If an addendum is required, open the patient's chart and click on the note under the Nurse/Allied Health tab.
== END 2024-07-26 13:27 | disposition home or self-care (01) ==
LOC: OB OUT 11:25 → OB 11:26
PROVIDERS: PCP Student in an Organized Health Care Education/Training Program; Visit Provider Family Medicine
DX: O10.913 Unspecified pre-existing hypertension complicating pregnancy, third trimester (principal); Z3A.32 32 weeks gestation of pregnancy
CPT/HCPCS: 36415; 59025; 82565; 84450; 84460; 84520; 85027; G0463

== ENCOUNTER 2024-08-13 08:49 | Outpatient (CLI) | payer OTHER, SELFPAY ==
--- NOTE | 2024-08-13 09:15 | CRLHL7_ITS ---
For Patients: As a result of the Century Cures Act, medical imaging exams and procedure reports are released immediately into your electronic medical record. You may view this report before your referring provider. If you have questions, please contact your health care provider. OBSTETRICAL ULTRASOUND ??? FOLLOW-UP, BIOPHYSICAL PROFILE, 08/13/2024 INDICATION: Preeclampsia and BMI greater than 50. CLINICAL HISTORY: RADHA by US: 09/14/2024 Gestational Age: 35 weeks 3 days COMPARISON: 07/03/2024 TECHNIQUE: Real-time salas-scale transabdominal imaging of the fetus was performed. FINDINGS: Fetus: Single Cervix: Not visualized positioning: Vertex Amniotic Fluid: 4.5 cm SDP BIOPHYSICAL PROFILE: Gross body movements: 2 tone: 2 Respiratory activity: 2 Amniotic fluid SDP: 2 Total score: 8 Placenta technique: Transabdominal Placenta position: Anterior heart rate: 144 bpm BIOMETRY: BPD: 8.3 cm, 33 weeks 2 days, 70% HC: 31.0 cm, 34 weeks 5 days, 7.7% AC: 32.4 cm, 36 weeks 2 days, 82.0% FL: 6.5 cm, 33 weeks 3 days, 5.8% FL/AC Ratio: 20.0% HC/AC ratio: 1.0 EFW: 2593 grams; 5 lbs. 11 oz. age by this ultrasound: 34 weeks 3 days RADHA by this ultrasound: 09/21/2024 Percentile by RADHA: 38.9% IMPRESSION: 1. Normal biophysical profile score of 8/8. 2. Sonographic gestational age 34 weeks 3 days and sonographic due date 09/21/2024. Sonographic age is 1 week behind of the clinical age. 3. Estimated weight is 39th percentile. Abdominal circumference is 82nd percentile. 4. BPD is 7th percentile, HC is 8th percentile, and FL is 6th percentile. 5. Focal area of heterogeneous hyperechoic tissue associated with the placenta measures 5.5 x 2.3 x 3.6 cm. This does not appear to be adjacent to the cord insertion and is likely incidental. ISAAK PIERRE M.D. Diagnostic Radiologist [email or web address] Transcribed: 11:[address]/Dictated by: Isaak Pierre MD @ 08/13/2024 10:07:00 AM (Electronically Signed)
== END 2024-08-13 08:50 | disposition home or self-care (01) ==
LOC: US 08:49
PROVIDERS: PCP Student in an Organized Health Care Education/Training Program; Visit Provider Obstetrics & Gynecology
DX: O14.93 Unspecified pre-eclampsia, third trimester (principal); O99.213 Obesity complicating pregnancy, third trimester; O36.5930 Maternal care for other known or suspected poor fetal growth, third trimester, not applicable or unspecified; Z3A.35 35 weeks gestation of pregnancy
CPT/HCPCS: 76816; 76819; 82565; 84450; 84460; 84520

== ENCOUNTER 2024-08-16 10:23 | Outpatient (CLI) | payer OTHER, SELFPAY ==
--- NOTE | 2024-08-16 10:45 | CRLHL7_ITS ---
For Patients: As a result of the Century Cures Act, medical imaging exams and procedure reports are released immediately into your electronic medical record. You may view this report before your referring provider. If you have questions, please contact your health care provider. RADHA by US: 09/14/2024. GA: 35w, 6d. Single. INDICATION: Obesity, non-reactive NST. CERVIX: Not visualized. POSITIONING: Vertex. AMNIOTIC FLUID: 6.0 cm SDP. BIOPHYSICAL PROFILE: Total score: 8. Gross body movements: 2. tone: 2. Respiratory activity: 2. Amniotic fluid: 2. (SDP N: Increase 2 x 1 cm) PLACENTA: Technique: Transabdominal. PLACENTA POSITION: Anterior. DOPPLER: heart rate: 149 bpm. IMPRESSION: 1. Normal biophysical profile 10/11. 2. Similar coarse calcifications within the placenta. Isaak Brock M.D. Diagnostic Radiologist [email or web address] bM/Dictated by: Isaak Brock MD @ 08/16/2024 11:34:00 AM (Electronically Signed)
== END 2024-08-16 10:24 | disposition home or self-care (01) ==
LOC: US 10:23
PROVIDERS: PCP Student in an Organized Health Care Education/Training Program; Visit Provider Obstetrics & Gynecology
DX: O99.213 Obesity complicating pregnancy, third trimester (principal); Z3A.35 35 weeks gestation of pregnancy
CPT/HCPCS: 76819; 82565; 84450; 84460; 84520

== ENCOUNTER 2024-08-20 08:01 | Outpatient (CLI) | payer OTHER, SELFPAY ==
--- NOTE | 2024-08-20 08:15 | CRLHL7_ITS ---
For Patients: As a result of the Cures Act, medical imaging exams and procedure reports are released immediately into your electronic medical record. You may view this report before your referring provider. If you have questions, please contact your health care provider. OB ULTRASOUND RADHA by US: 09/14/2024. GA: 36 w, 3 d. Single. Comparison: 08/16/2024, 08/13/2024, 07/03/2024. INDICATION: Obesity. CHTN. TECHNIQUE: Real time grayscale imaging of the fetus was performed. Transabdominal. CERVIX: Not visualized. POSITIONING: Vertex. AMNIOTIC FLUID: 5.7 cm. SDP (N: greater than 2 x 1 cm) BIOPHYSICAL PROFILE: 2: Gross body movements 2: tone 2: Respiratory activity 2: Amniotic fluid SDP (N: greater than 2 x 1 cm) 8/8: Total score PLACENTA: Technique: Transabdominal. PLACENTA POSITION: Anterior. DOPPLER: heart rate: 137 bpm. IMPRESSION: Normal biophysical profile score 8/8. Isaak Brock M.D. Diagnostic Radiologist [email or web address]/Dictated by: Isaak Brock MD @ 08/20/2024 9:14:00 AM (Electronically Signed)
== END 2024-08-20 08:02 | disposition home or self-care (01) ==
LOC: US 08:02
PROVIDERS: PCP Student in an Organized Health Care Education/Training Program; Visit Provider Obstetrics & Gynecology
DX: O99.213 Obesity complicating pregnancy, third trimester (principal); O10.913 Unspecified pre-existing hypertension complicating pregnancy, third trimester; Z3A.36 36 weeks gestation of pregnancy
CPT/HCPCS: 76819; 82565; 84450; 84460; 84520

== ENCOUNTER 2024-08-20 10:05 | Inpatient (IN) | payer OTHER, SELFPAY ==
[2024-08-20] VITALS (42 sets, daily range): BP systolic 112–184; BP diastolic 56–122; PULSE 78–131; RESP 17–18; TEMP 36.4–37.1; O2SAT 92–96; BMI 53.1
[2024-08-20] MEDS: LABETALOL HCL 5 MG/ML inj IVP ×2 (10:00→10:28)
[2024-08-20] MEDS: MAGNESIUM IV 4 GM/100 ML PIGGYBACK IVPB (10:04)
[2024-08-20] MEDS: LACTATED RINGERS 1000 ML 1,000 ML 75 ML IV ×2 (10:05→22:47)
--- NOTE | 2024-08-20 10:07 | P.LDBA_ITS ---
Subjective History of Present Illness Narrative: Patient is being admitted to Labor and Delivery for induction of labor secondary to pre-eclampsia with severe features by BP criteria. She is a 29 year old at 36 3/7 weeks gestation. Her full history and physical was dictated by Dr. Asencio on 08/06/2024. Please see this for details. She was found to have elevated BP in clinic today and sent over to the Center for BP monitoring while labs were obtained and pending. Denies headaches, visual changes, increased swelling, contractions, unusual vaginal discharge, leakage of fluid or vaginal bleeding. Specific Issues/Plans Partner: Jus Baby: Boy! Dating by 1st trimester US RADHA 09/14/2024 H&P 08/06 Dr. SCRUGGS TRANSFER of care from [facility] at 34w3d on 08/06/24 # Preeclampsia * Severe gestational htn diagnosed at 29+ wks on 07/03/24 transferred to [facility] ([facility]) * BMTZ 07/03, 07/04 * [facility] started the patient on labetalol (400mg TID) and nifedipine (90mg daily) to treat GTHN (not the standard of care) * Preeclampsia w/o severe features diagnosed on 07/23 w/ 24hr urine protein = 336mg * Referral to Dr. Miller for obesity on 08/01 then urgently consulted [facility] due to preeclampsia * Admitted to [facility] 08/01-08/04/24: Antihypertensive medications stopped on 08/01 * Second course of BMTZ 08/01, 08/02 * IOL at 37wks or sooner for severe features * Labs 08/13/24: Hgb 13.7, Plts 217K, Creat 0.6, BUN 10, AST 44, ALT 26 #Pre BMI 44.56 * Anesthesia consultation requested 08/06/24 * Transfer of care to [facility] on 08/06/2024 at 34w3d * BMI on 08/06 51.8 * Hgb A1C not included in labs from the [facility]. * 06/10/24: 1hr GTT @ 26w2d 144 * 06/17/24: 3hr GTT @ 27w2d all normal (88, 157, 120, 78) # Anxiety, depression and OCD * On Buspar 10mg PO BID and Venlafaxine 225mg daily * Anxiety not well controlled * Followed by psychiatry labs 01/15/24: Bloodtype: O+, antibody screen negative HepBsAg: NR HIV: NR Treponema Pallidum: neg Varicella: 1.42 (Immune >/= 1.0) Hgb: 13.7 Platelets: 399K GC/Chlamydia: neg/neg Rubella: 8.79 (Immune >/= 1.0) Imaging: Level 2 ([facility]) 04/29/2024: Reported no anatomic abnormality identified. Report not scanned into the patient record. EFW 453g, 99%. 06/24/24: EFW 79% 07/30/24 [facility] US: Vtx. SDP 4.23cm. EFW 31%. BPP 8 08/05/24: BPP 8 08/13: cephalic, SDP 4.5, EFW 38.9%, AC 82%, BPD 7%, HC 7.7%, FL 5.8%. Focal area of heterogeneous hyperechoic tissue associated with the placenta measures 5.5 x 2.3 x 3.6 cm. This does not appear to be adjacent to the cord insertion and is likely incidental. Immunizations: Tdap:[] RSV: N/A Flu: declined Covid: declined OB - Problem Based A/P Additional Plan (1) Preeclampsia, severe: Status: Acute (2) Obesity complicating in third trimester: Problem details: BMI > 50.0 Status: Acute Plan Admit to the center. IV labetalol p.r.n. per protocol for severe range blood pressures. Magnesium sulfate prophylaxis IV. Begin induction of labor today with cervical ripening. Serial labs Q 6 hours. Start nifedipine XL 30 mg po daily. Delivery/Labor/Induction Plan Plan: induction Induction method: per misoprostol protocol OB Result Labs Blood Type: O (+) positive Rubella: immune RPR/VDLR: nonreactive GBS Status: negative (08/01/24) HBsAG: negative OB Exam Physical Exam Vital signs: Temp Pulse Resp BP 98.7 F 93 17 151/97 H 08/20/24 09:32 08/20/24 10:01 08/20/24 09:32 08/20/24 10:01 Narrative: VITAL SIGNS: Noted above. GENERAL APPEARANCE: Alert cooperative female in no acute distress. MOOD AND AFFECT: Normal. CV: Regular rate and rhythm. PULM: Clear to auscultation bilaterally. ABDOMEN: Soft, gravid, nontender. Fundal height is consistent with dates. The fetus is in a vertex presentation by Jose's. heart tones are present with the Doptones in the 140s. EXTREMITIES: 1+ edema, nontender bilaterally. NEURO: Intact. Detailed Labor and Delivery Exam Patient Gravid: yes Dilation (cm): 0 Cervix position: posterior Consistency: medium Contraction Frequency: None.
[2024-08-20] MEDS: MAGNESIUM Infusion 40 GM/1,000 ML IV.SOLN IVPB (10:38)
[2024-08-20] MEDS: NIFEdipine ER 30 MG TAB PO (11:34)
[2024-08-20] MEDS: miSOPROStoL 25 MCG/0.25 TABLET VAGINAL ×4 (11:42→21:04)
[2024-08-20 16:45] LABS: Alanine Aminotransferase* 24 U/L (4-35); Aspartate Amino Transferase* 37 U/L (12-35); Blood Urea Nitrogen* 11 mg/dL (5-24); Creatinine* 0.7 mg/dL (0.5-1.5); Est. Creatinine Clearance* 117.39; Estimated Glomerular Filt Rate 121 ml/min; Magnesium* 3.3 mg/dL (1.5-2.6)
[2024-08-20 17:14] LABS: Hematocrit 39.5 % (33.0-51.0); Hemoglobin* 13.3 gm/dL (12.0-16.0); Mean Corpuscular HGB Conc 34 gm/dL (32-36); Mean Corpuscular Hemoglobin 29 pg (26-34); Mean Corpuscular Volume 85 fL (80-100); Platelet Count* 246 K/uL (140-440); Red Blood Count 4.66 m/uL (4.00-5.20); White Blood Count* 8.81 K/uL (4.50-11.00)
[2024-08-20 17:16] LABS: Slide Review Reflex No
[2024-08-20] MEDS: ACETAMINOPHEN 500 MG TABLET 1000 MG PO (20:27)
[2024-08-20] MEDS: BUSPIRONE 10 MG TABLET PO (20:52)
[2024-08-20] MEDS: VENLAFAXINE ER 75 MG CAPSULE 225 MG PO (21:03)
[2024-08-20 22:00] LABS: Hematocrit 38.3 % (33.0-51.0); Hemoglobin* 12.9 gm/dL (12.0-16.0); Mean Corpuscular HGB Conc 34 gm/dL (32-36); Mean Corpuscular Hemoglobin 29 pg (26-34); Mean Corpuscular Volume 85 fL (80-100); Platelet Count* 226 K/uL (140-440); Red Blood Count 4.53 m/uL (4.00-5.20); White Blood Count* 9.77 K/uL (4.50-11.00)
[2024-08-20 22:03] LABS: Slide Review Reflex No
[2024-08-20] MEDS: hydrOXYzine pamoate 25 MG CAPSULE 100 MG PO (22:23)
[2024-08-20 22:41] LABS: Alanine Aminotransferase* 21 U/L (4-35); Aspartate Amino Transferase* 30 U/L (12-35); Blood Urea Nitrogen* 10 mg/dL (5-24); Creatinine* 0.7 mg/dL (0.5-1.5); Est. Creatinine Clearance* 117.39; Estimated Glomerular Filt Rate 121 ml/min
[2024-08-20 22:42] LABS: Magnesium* 3.5 mg/dL (1.5-2.6)
[2024-08-20] MEDS: MORPHINE 10 MG/ML inj IM (23:39)
[2024-08-21] VITALS (91 sets, daily range): BP systolic 102–183; BP diastolic 57–118; PULSE 64–131; TEMP 36.4–36.7; O2SAT 92–100
[2024-08-21] MEDS: miSOPROStoL 25 MCG/0.25 TABLET VAGINAL ×2 (01:14→05:59)
[2024-08-21] MEDS: NIFEdipine ER 30 MG TAB PO ×2 (03:42→17:49)
[2024-08-21 04:22] LABS: Hematocrit 40.4 % (33.0-51.0); Hemoglobin* 13.8 gm/dL (12.0-16.0); Mean Corpuscular HGB Conc 34 gm/dL (32-36); Mean Corpuscular Hemoglobin 29 pg (26-34); Mean Corpuscular Volume 85 fL (80-100); Platelet Count* 221 K/uL (140-440); Red Blood Count 4.76 m/uL (4.00-5.20); White Blood Count* 9.62 K/uL (4.50-11.00)
[2024-08-21 04:28] LABS: Slide Review Reflex No
[2024-08-21 04:38] LABS: Blood Urea Nitrogen* 9 mg/dL (5-24); Creatinine* 0.6 mg/dL (0.5-1.5); Est. Creatinine Clearance* 136.96; Estimated Glomerular Filt Rate 126 ml/min
[2024-08-21 04:39] LABS: Alanine Aminotransferase* 20 U/L (4-35); Aspartate Amino Transferase* 30 U/L (12-35)
[2024-08-21 04:46] LABS: Magnesium* 3.9 mg/dL (1.5-2.6)
[2024-08-21] MEDS: MAGNESIUM Infusion 40 GM/1,000 ML IV.SOLN IVPB (06:07)
--- NOTE | 2024-08-21 08:53 | P.OBPN_ITS ---
Subjective Time Seen by Provider: 09:00 Date Seen: 08/21/24 Narrative: Alma is a 29yo at 36w4d GA ongoing IOL for pre-eclampsia with severe features by BP criteria. is otherwise complicated by class 3 obesity, maternal anxiety/depression/OCD. Her full history and physical was dictated by Dr. Asencio on 08/06/2024. Induction has included vaginal Cytotec times doses. Patient notes she is really feeling no pain/contractions. Denies vaginal bleeding or leaking of fluid. Endorses movement. Denies headaches, vision changes or right upper quadrant pain. She did receive nifedipine XL 30 mg this morning at approximately 0330, plan to continue this b.i.d. was previously made. Objective Exam: General: Alert and oriented, no acute distress Psych: Appropriate mood and affect Abdomen: Gravid. EFW by ultrasound on 08/13/2024 was 2593g at 39th percentile. Cervix: 1.5/30/-2. After discussion of risks, benefits and alternatives, verbal consent for Cook catheter placement was obtained. Cook was placed without difficulty, 60cc of saline was instilled in each balloon. Procedure was well tolerated. FHR: Category 1. Baseline 130bp, moderate variability, 10x10 accelerations prese nt, decelerations absent. [place]: Difficult to monitor. Contractions about every 1-8 minutes, though patient notes she does not feel these. Vital Signs: Last Vital Signs Temp 98.1 F 08/21/24 07:05 Pulse 86 08/21/24 08:06 Resp 18 08/20/24 18:12 BP 114/60 08/21/24 08:06 Pulse Ox 95 08/21/24 08:49 Plan Plan: Alma is a 29-year-old at 36w4d GA ongoing IOL for pre-eclampsia with severe features by BP criteria. is otherwise complicated by class 3 obesity, maternal anxiety/depression/OCD. - Induction progress has included vaginal Cytotec x6. This morning, cervix was 1.5/30/-2, where cook catheter was recommended in placed. Insertion was uncomplicated, instilled with 60cc of NS in both balloons. - Plan expectant management for the next several hours, will initiate low-dose Pitocin early this afternoon - Blood pressures have been primarily in the normal to mild range, status post nifedipine XL 30 mg at 0330 this morning. Continue diligent blood pressure monitoring, plan to treat any sustained severe range blood pressures as necessary. - Magnesium sulfate is ongoing for seizure prophylaxis - Q6H HELLP labs ongoing, last set at 0945 with platelets of 228, Cr 0.6, AST 34, ALT 25 - Pain control per patient preference, likely intends epidural - Blood type O positive - GBS unknown, recommend we obtain a swab now so pediatrics has this information post delivery. Regrdless, plan to start GBS prophylaxis in the setting of unknown status and prematurity. Start ampicillin per protocol.
[2024-08-21 10:06] LABS: Hematocrit 41.1 % (33.0-51.0); Hemoglobin* 13.9 gm/dL (12.0-16.0); Mean Corpuscular HGB Conc 34 gm/dL (32-36); Mean Corpuscular Hemoglobin 29 pg (26-34); Mean Corpuscular Volume 85 fL (80-100); Platelet Count* 228 K/uL (140-440); Red Blood Count 4.86 m/uL (4.00-5.20); White Blood Count* 11.26 K/uL (4.50-11.00)
[2024-08-21 10:16] LABS: Slide Review Reflex No
[2024-08-21 10:22] LABS: Alanine Aminotransferase* 25 U/L (4-35); Aspartate Amino Transferase* 34 U/L (12-35); Blood Urea Nitrogen* 8 mg/dL (5-24); Creatinine* 0.6 mg/dL (0.5-1.5); Est. Creatinine Clearance* 136.96; Estimated Glomerular Filt Rate 126 ml/min
[2024-08-21 10:24] LABS: Magnesium* 4.1 mg/dL (1.5-2.6)
[2024-08-21] MEDS: LACTATED RINGERS 1000 ML 1,000 ML 75 ML IV ×2 (12:08→21:51)
[2024-08-21] MEDS: OXYTOCIN 30 unit/500 ML in NS 30 UNIT/500 ML BAG IVPB (13:04)
[2024-08-21] MEDS: BUSPIRONE 10 MG TABLET PO ×2 (14:55→21:52)
[2024-08-21] MEDS: VENLAFAXINE ER 75 MG CAPSULE 225 MG PO (14:55)
[2024-08-21] MEDS: LABETALOL HCL 5 MG/ML inj IVP (17:10)
[2024-08-21] MEDS: fentaNYL 100 MCG/2 ML inj IVP (18:16)
[2024-08-21] MEDS: ROPIVACAINE 0.2% 100 ml 100 ML 12 MG EPIDURAL (20:53)
[2024-08-21] MEDS: LIDOCAINE 2% (PF) 5 ML VIAL EPIDURAL (20:53)
[2024-08-21] MEDS: ROPIVACAINE 0.2 % PF 10 ML INJ 20 MG EPIDURAL (20:53)
--- NOTE | 2024-08-21 21:17 | PM.ANBPRC ---
[facility] Medical History (Updated 08/20/24 @ 10:22 by Mary Carter MD) Generalized anxiety disorder ?F41.1 - Generalized anxiety disorder (ICD-10) OCD (obsessive compulsive disorder) ?F42.9 - Obsessive-compulsive disorder, unspecified (ICD-10) Chronic major depressive disorder ?F32.9 - Major depressive disorder, single episode, unspecified (ICD-10) Depression ?F32.A - Depression, unspecified (ICD-10) Social History (Updated 08/01/24 @ 17:32 by Tasneem Miller MD) Narrative: She is . She does not smoke, drink alcohol or use recreational drugs. What is your current living situation?: I presently have a place to live Problems where you live: no known problems In the past 12 months, utilities in danger of being shut off: no In past 12 months, lack of transportation kept you from medical appts, meetings, work, or getting things needed for daily living: no In the past 12 mos, have been you worried that your food would run out before you had money to buy more?: never true In the past 12 mos, the food you bought just didn't last and you didn't have money to buy more?: never true Smoking Status: Never smoker How often do you have a drink containing alcohol: 4 or more times a week AUDIT-C Alcohol total score: 4 Non-prescribed substance use: other Non-prescribed substance use details: delta 8 How often does anyone, including family, friends and others, physically hurt you: never How often does anyone, including family, friends and others, insult or talk down to you: never How often does anyone, including family, friends and others, threaten you with harm: never How often does anyone, including family, friends and others, scream or curse at you: never Meds Home Medications and Allergies Home Medications ?Medication ?Instructions ?Recorded ?Confirmed ?Type venlafaxine 75 mg capsule,extended 225 mg PO DAILY 09/12/23 08/20/24 History release 24 hr docosahexaenoic acid 1 cap PO DAILY 03/27/24 08/20/24 History ondansetron 4 mg disintegrating 4 mg PO Q8H PRN nausea and 03/27/24 08/20/24 Rx tablet vomiting #20 tabs Held on 08/20/24. Instructions: not needed aspirin 81 mg tablet,delayed 81 mg PO DAILY 06/04/24 08/20/24 History release (Adult Aspirin Regimen) docusate sodium 100 mg capsule 100 mg PO DAILY 06/04/24 08/20/24 History (Colace) polyethylene glycol 3350 17 gram 17 g PO DAILY 06/04/24 08/20/24 History oral powder packet pyridoxine (vitamin B6) 100 mg 100 mg PO DAILY 06/04/24 08/20/24 History tablet buspirone 10 mg tablet 10 mg PO BID 07/01/24 08/20/24 History doxylamine succinate 25 mg tablet 12.5 mg PO Q6H PRN 07/01/24 08/20/24 History (Unisom (doxylamine)) famotidine 20 mg tablet (Pepcid) 20 mg PO DAILY 07/01/24 08/20/24 History Allergies Allergy/AdvReac Type Severity Reaction Status Date / Time amoxicillin Allergy Mild Nausea Verified 08/20/24 09:36 clarithromycin Allergy Verified 08/20/24 09:36 Results Labs Labs: Laboratory Results - last 24 hr 08/20/24 08/21/24 08/21/24 21:47 04:05 09:58 WBC 9.77 9.62 11.26 H RBC 4.53 4.76 4.86 Hgb 12.9 13.8 13.9 Hct 38.3 40.4 41.1 MCV 85 85 85 MCH 29 29 29 MCHC 34 34 34 Plt Count 226 221 228 BUN 10 9 8 Creatinine 0.7 0.6 0.6 Estimated Creat Clear 117.39 136.96 136.96 Estimated GFR 121 126 126 Magnesium 3.5 H 3.9 H 4.1 H* AST 30 30 34 ALT 21 20 25 Vital Signs Vital Signs: Last Vital Signs Temp 98 F 08/21/24 19:39 Pulse 116 H 08/21/24 21:15 Resp 18 08/20/24 18:12 BP 127/68 08/21/24 21:15 Pulse Ox 97 08/21/24 21:16 Weight: 153.768 kg Height: 170.18 cm Anesthesia Procedures Epidural Insertion Patient Location: OB Start Time: 20:30 Stop Time: 21:17 Start Date: 08/21/24 Stop Date: 08/21/24 Reason for Block: procedure for pain Patient Position: sitting Performed By: Hugh Haley Preanesthetic Checklist: IV checked, risks and benefits discussed, surgical consent, monitors and equipment checked, pre-op evaluation, timeout performed and anesthesia consent Prep: chlorhexidine gluconate Monitoring: blood pressure monitoring, continuous pulse oximetry and heart rate Approach: midline Vertebral Space: lumbar (1-5) Epidural Technique: ROCKY air Needle Type: Tuohy needle Injection Technique: continuous catheter Needle gauge: 17 Needle Length (cm): 10 cm Needle Insertion Depth (cm): 9 Catheter Gauge: 19 Catheter Type: multi-orifice Catheter at skin depth (cm): 15 Test Dose Result: negative and lidocaine 1.5% with epinephrine 1 to 200,000
--- NOTE | 2024-08-21 22:37 | PM.OBPNL ---
Subjective Time Seen by Provider: 22:35 Date Seen: 08/21/24 Narrative: Delayed documentation due to patient cares. Alma is a 29yo at 36w4d GA ongoing IOL for pre-eclampsia with severe features by BP criteria. is otherwise complicated by class 3 obesity, maternal anxiety/depression/OCD. Her full history and physical was dictated by Dr. Asencio on 08/06/2024. Induction has included vaginal Cytotec x6, cook catheter, pitocin titration. She is now comfortable s/p epidural placement. Denies feeling any contraction pain at this time. No vaginal bleeding side from bloody show after cook removal. BPs have required nifedipine XL 30mg BID and short acting labetolol x1 this evening. No headache, vision changes or RUQ pain. Objective Exam: General: Alert and oriented, no acute distress Psych: Appropriate mood and affect Abdomen: Gravid. EFW by ultrasound on 08/13/2024 was 2593g at 39th percentile. Cervix: 4.5/60/-1, s/p AROM with return of large volume clear fluid. FHR: Category 2. Baseline 150bpm, moderate variability, recurrent late decelerations s/p epidural placement. Category 1 prior to epidural placement. Treating hypotension and cat II FHR tracing with ephedrine now. [place]: Contractions about every 2-4 minutes. Vital Signs: Last Vital Signs Temp 98 F 08/21/24 19:39 Pulse 64 08/21/24 22:27 Resp 18 08/20/24 18:12 BP 102/60 08/21/24 22:27 Pulse Ox 98 08/21/24 21:41 Plan Plan: Alma is a 29yo at 36w4d GA ongoing IOL for pre-eclampsia with severe features by BP criteria. is otherwise complicated by class 3 obesity, maternal anxiety/depression/OCD. - Cervix is 4.5/60/-1. IOL has included cytotec x6, cook catheter, pitocin and now AROM. Plan to hold pitocin at 13mu/min for now, will modify as needed after period of monitoring. - Category 2 FHR tracing, currently stable and reliable monitoring via [place]. Explained we would have a low threshold to proceed with FSE and/or IUPC placement if needed for continued monitoring efforts. - Blood pressures significantly lower than pre-epidural state with category 2 FHR tracing, plan to administer epinephrine now to optimize BP and placental perfusion. Maternal repositioning ongoing. - Continue Q6H preE labs - Last dose of nifedipine XL 30mg at approximately 1700. She received 1 dose of IV labetolol shortly prior to that. Plan to continue to diligently monitor BP. - GBS negative at outside hospital - disregard my previous documentation regarding starting ampicillin for prophylaxis - Anticipate next exam in 4 hours, sooner as clinically indicated
[2024-08-21] MEDS: PHENYLEPHRINE 100 MCG/ML SYRINGE IVP (22:41)
[2024-08-21] MEDS: ePHEDrine sulfate 5 MG/ML inj 10 MG IVP (22:56)
[2024-08-21] MEDS: TERBUTALINE 1 MG/ML INJ 0.25 MG SUBCUT (22:56)
[2024-08-21 23:42] LABS: Fibrinogen* 655 mg/dL (200-450); INR 0.77 (0.91-1.10); Partial Thromboplastin Time* 30 Seconds (23-33); Prothrombin Time 11.4 Seconds
[2024-08-21 23:49] LABS: Basophils Absolute Auto 0.01 K/uL (0.00-0.30); Basophils Percent Auto 0.1 % (0.0-3.0); Eosinophils Absolute Auto 0.04 K/uL (0.00-0.50); Eosinophils Percent Auto 0.4 % (0.0-7.0); Hematocrit 40.6 % (33.0-51.0); Hemoglobin* 13.5 gm/dL (12.0-16.0); Immature Granulocytes Abs Auto 0.11 K/uL (0.00-0.30); Lymphocytes Absolute Auto 2.48 K/uL (0.90-2.90); Lymphocytes Percent Auto 23.3 % (20-44); Mean Corpuscular HGB Conc 33 gm/dL (32-36); Mean Corpuscular Hemoglobin 29 pg (26-34); Mean Corpuscular Volume 86 fL (80-100); Monocytes Percent Auto 4.4 % (0.0-11.0); Neutrophils Absolute Auto 7.52 K/uL (1.7-7.0); Neutrophils Percent Auto 70.8 % (42.0-72.0); Platelet Count* 257 K/uL (140-440); RDW Coefficient of Variation % 14.2 % (11.5-15.5); Red Blood Count 4.74 m/uL (4.00-5.20); Slide Review Reflex No; White Blood Count* 10.63 K/uL (4.50-11.00)
[2024-08-22] VITALS (74 sets, daily range): BP systolic 72–170; BP diastolic 38–115; PULSE 73–118; RESP 16–20; TEMP 36.5–36.9; O2SAT 85–99
[2024-08-22 00:03] LABS: Alanine Aminotransferase* 22 U/L (4-35); Aspartate Amino Transferase* 34 U/L (12-35); Blood Urea Nitrogen* 12 mg/dL (5-24); Creatinine* 0.8 mg/dL (0.5-1.5); Est. Creatinine Clearance* 102.72; Estimated Glomerular Filt Rate 104 ml/min
[2024-08-22 00:12] LABS: Magnesium* 4.4 mg/dL (1.5-2.6)
--- NOTE | 2024-08-22 00:38 | PM.OBPNL ---
Subjective Time Seen by Provider: 22:48 Date Seen: 08/22/24 Narrative: Delayed documentation due to patient cares. Alma is a 29yo at 36w4d GA ongoing IOL for pre-eclampsia with severe features by BP criteria. is otherwise complicated by class 3 obesity, maternal anxiety/depression/OCD. On last exam, she was 4.5/60/-1, where AROM was performed. Returned to bedside within a few minutes due to recurrent late decelerations that evolved into a prolonged deceleration despite IV phenylephrine and maternal repositioning. Recommended placement of FSE to better assess status, IUPC was placed to follow. Patient provided verbal consent. Cervix was unchanged at 4.5/60/-1, no cord prolapse. Uncomplicated FSE and IUPC placement. 500cc IV fluid bolus was requested, Pitocin was turned off at approximately 2245. Baby would gradually recover in terms of their baseline t0 120bpm, but marked variability was noted in between recurrent late decelerations to a ana of 70bpm. Alma was again repositioned and further phenylephrine then ephedrine was administered. She continued to have recurrent late decelerations where 0.25mg terbutaline was administered at 2256. Given recurrent category 2 FHR tracing in the setting of recurrent late decelerations (at times prolonged), slow return to baseline of 120bpm (historic baseline 150bpm) and marked variability despite resuscitative efforts I recommended we proceed with emergency . Code liv was called at 2258. I verbally reviewed the risks and benefits of procedure including risk of bleeding, infection, damage to surrounding structures (uterus, tubes, ovaries, bowel, bladder, baby) and medical complications of surgery/anesthesia such as heart attack, stroke and VTE. Patient provided verbal consent to proceed. While the team was presenting, continuous monitoring continued with maternal repositioning and further BP support. By 2304 there was more sustained recovery to baseline of 140bpm with minimal variability noted. Patient was transferred emergently to the OR. While in the OR, baseline was noted to be 150bpm with minimal variability and ongoing late decelerations. Given recent timing of her epidural and high level of anesthesia, it was mutually agreed upon that it was acceptable to proceed with trial of epidural bolus for pain control rather than general anesthetic. The abdomen was prepped and draped in the usual sterile fashion. Continuous monitoring continued. A deceleration was noted to 60bpm as drapes were applied, FSE was removed and we proceeded emergently with Code white . Please see operative note for details. Objective Vital Signs: Last Vital Signs Temp 98 F 08/21/24 19:39 Pulse 117 H 08/21/24 22:56 Resp 18 08/20/24 18:12 BP 102/70 08/21/24 22:56 Pulse Ox 98 08/21/24 21:41
[2024-08-22 00:55] LABS: Eosinophils Absolute Auto 0.02 K/uL (0.00-0.50); Eosinophils Percent Auto 0.2 % (0.0-7.0); Hematocrit 34.3 % (33.0-51.0); Hemoglobin* 11.5 gm/dL (12.0-16.0); Immature Granulocytes Abs Auto 0.04 K/uL (0.00-0.30); Immature Granulocytes Pct Auto 0.4 %; Lymphocytes Absolute Auto 2.19 K/uL (0.90-2.90); Lymphocytes Percent Auto 20.8 % (20-44); Mean Corpuscular HGB Conc 34 gm/dL (32-36); Mean Corpuscular Hemoglobin 29 pg (26-34); Mean Corpuscular Volume 86 fL (80-100); Monocytes Percent Auto 4.3 % (0.0-11.0); Neutrophils Percent Auto 74.3 % (42.0-72.0); Platelet Count* 228 K/uL (140-440); RDW Coefficient of Variation % 14.1 % (11.5-15.5); White Blood Count* 10.51 K/uL (4.50-11.00)
[2024-08-22 00:57] LABS: Slide Review Reflex No
--- NOTE | 2024-08-22 01:31 | P.ANES_ITS ---
Anesthesia Charges Start Date/Time Anesthesia Start Date: 08/22/24 Anesthesia Start Time: 23:15 Stop Date/Time Anesthesia Stop Date: 08/22/24 Anesthesia Stop Time: 00:35 Summary Emergency: SYSTEMS INTEGRATION MANAGER Coding CPT Codes CPT Codes: ANES/ANALG CS DELIVER ADD-ON - 43971 ([id number]) P3 - PATIENT W/SEVERE SYS DISEASE, QZ - SYSTEMS INTEGRATION MANAGER SVC W/O CARRY ALL DRIVER BY Additional Codes: Summary - Emergency: SYSTEMS INTEGRATION MANAGER ([id number])
--- NOTE | 2024-08-22 01:31 | W.ANESCHARGE ---
Anesthesia Charges Start Date/Time Anesthesia Start Date: 08/22/24 Anesthesia Start Time: 23:15 Stop Date/Time Anesthesia Stop Date: 08/22/24 Anesthesia Stop Time: 00:35 Summary Emergency: LABORER GOLF COURSE Coding CPT Codes CPT Codes: ANES/ANALG CS DELIVER ADD-ON - 71589 ([id number]) P3 - PATIENT W/SEVERE SYS DISEASE, QZ - LABORER GOLF COURSE SVC W/O HOUSEKEEPING/LAUNDRY SUPERVISOR BY Additional Codes: Summary - Emergency: LABORER GOLF COURSE ([id number])
--- NOTE | 2024-08-22 01:54 | PM.OBPRCCS ---
Procedure Time Seen by Provider: 23:59 Date of procedure: 08/21/24 Pre-op diagnosis: Non-reassuring heart tones, preeclampsia with severe features, obesity, anxiety, depression, OCD, prediabetes Post-op diagnosis: same Procedure Done: Global Will [facility] bill your pro fee for this procedure?: Yes Blood Loss Measurement Type: QBL (509) IV fluids (mL): 700 Urine Output (mL): 200 Urine Output Comment: Clear yellow Surgeon: Juanpablo Sheikh MD Electoral Officer: Natalya Asencio MD Anesthesia Type: Epidural Findings: Liveborn male fetus Unremarkable uterus, bilateral fallopian tubes Bilateral ovaries demonstrated polycystic morphology Procedure Name: Primary delivery Procedure Description: Alma is a 29yo at 36w4d GA ongoing IOL for preeclampsia with severe features. otherwise complicated by obesity, prediabetes, anxiety, depression and OCD. A Code White Cesaren was called in the setting of nonreassuring FHR remote from delivery for recurrent and (at times) prolonged decelerations with slow recovery to a normal baseline with marked then minimal variability. Patient was taken emergently to the operating room with IV running. She received cefazolin and azithromycin in preoperative prophylaxis. Epidural anesthesia was administered and bolused. Doshi catheter was previously inserted. She was prepped and draped in the usual sterile fashion. Anesthesia was tested and found to be adequate. Procedure start was 2328. A low-transverse skin incision was made with a scalpel and carried through to the underlying layer of fascia with the scalpel. The fascia was nicked in the midline and extended laterally with manual traction consistent with Nicolas-Gomez technique. The rectus muscles were in the midline, where peritoneum was entered bluntly and extended with traction and Bovie. Raheel O retractor was inserted and tightened down, providing excellent visualization of the lower uterine segment. The bladder reflection was found to be well below the planned site for hysterotomy. Low-transverse uterine incision was made with a scalpel. Incision was widened bluntly. The 's head was grasped through the hysterotomy and elevated to the hysterotomy atraumatically. The remainder of the body delivered without incident with the help of fundal pressure. No nuchal cord was noted. Cord was immediately doubly clamped, cut and was handed off to attending nurses and Dr. Walsh in the setting of code white . was noted to have reduced tone, slight grimace but did make one spontaneous cry during the process of cord clamping and transfer. The placenta was delivered with gentle traction on the cord. The uterus was cleaned of all clots and debris with the dry lap pad. Uterine atony was noted immediately, addressed with IV pitocin (40U in crystalloid) and 1g IV TXA. The hysterotomy was reapproximated with 0 Vicryl in a running, locked fashion. At this time, Dr. Asencio arrived to assist in the setting of unscheduled , requested in the setting of Code White with BMI of 53. The second layer of the same suture was used in imbricating fashion to obtain hemostasis. Uterine tone was adequate. The uterus was reintroduced into the abdominal cavity. When off tension, there was oozing noted at the midline of hysterotomy. Two [id number] sutures were applied with 0 vicryl across hysterotomy. Excellent hemostasis was noted. The adnexa were examined and noted to be normal in appearance, aside from polycystic ovarian morphology as described above. The cul-de-sac and gutters were cleansed with dampened laparotomy sponge, removing any further clots and debris. The Raheel O retractor was removed. The hysterotomy was reexamined and found to be hemostatic. The rectus muscles were examined and made hemostatic as needed with electrocautery. The fascia was reapproximated with 0 PDS in a running fashion. Subcutaneous fat was irrigated and Bovie used on oozing vessels. The subcutaneous fat was reapproximated in two layers of running 2-0 vicryl. The skin was closed with a subcuticular stitch of 3-0 monocryl. Silver dressing was applied. Patient tolerated procedure well was taken to recovery area in stable condition. Surgical debrief was completed. details: - Liveborn male fetus - weight: 2480g - APGARs were 4 and 6 and 6 at 1, 5 and 10 minutes respectively. Baby did require approximately 20 minutes of resuscitation with primarily CPAP (intermittent PPV) please see Dr. Yuan's note. - Cord gas obtained and sent - ABG notable for pH of 7.2, pCO2 74, HCO3 29 and base excess of -1.8 most consistent with very mild respiratory acidosis Complications: None Pathology: specimen obtained, sent to pathology Surgery Debrief Performed: Yes Condition: stable Disposition: floor
[2024-08-22] MEDS: MAGNESIUM Infusion 40 GM/1,000 ML IV.SOLN IVPB ×2 (01:56→21:21)
[2024-08-22] MEDS: LACTATED RINGERS 1000 ML 1,000 ML 500 ML IV (01:58)
[2024-08-22 06:15] LABS: Hematocrit 38.8 % (33.0-51.0); Mean Corpuscular HGB Conc 34 gm/dL (32-36); Mean Corpuscular Hemoglobin 29 pg (26-34); Mean Corpuscular Volume 86 fL (80-100); Platelet Count* 230 K/uL (140-440); Red Blood Count 4.52 m/uL (4.00-5.20); White Blood Count* 13.02 K/uL (4.50-11.00)
[2024-08-22 06:18] LABS: Slide Review Reflex No
[2024-08-22 06:22] LABS: Alanine Aminotransferase* 23 U/L (4-35); Aspartate Amino Transferase* 37 U/L (12-35); Blood Urea Nitrogen* 11 mg/dL (5-24); Creatinine* 0.8 mg/dL (0.5-1.5); Est. Creatinine Clearance* 102.72; Estimated Glomerular Filt Rate 104 ml/min
[2024-08-22 06:37] LABS: Magnesium* 4.7 mg/dL (1.5-2.6)
[2024-08-22] MEDS: NIFEdipine ER 30 MG TAB PO (06:37)
[2024-08-22] MEDS: LABETALOL HCL 5 MG/ML inj IVP (06:52)
[2024-08-22] MEDS: KETOROLAC 30 MG/ML inj IVP ×3 (07:26→19:33)
[2024-08-22] MEDS: VENLAFAXINE ER 75 MG CAPSULE 225 MG PO ×2 (08:55)
[2024-08-22] MEDS: NIFEdipine ER 30 MG TAB 60 MG PO ×2 (08:55→21:06)
[2024-08-22] MEDS: DOCUSATE SODIUM 100 MG CAPSULE PO (08:55)
[2024-08-22] MEDS: ENOXAPARIN 40 MG/0.4 ML INJ SUBCUT ×2 (09:09→21:06)
[2024-08-22] MEDS: BUSPIRONE 10 MG TABLET PO ×2 (09:10→21:06)
[2024-08-22 12:05] LABS: Hematocrit 37.9 % (33.0-51.0); Hemoglobin* 12.8 gm/dL (12.0-16.0); Mean Corpuscular HGB Conc 34 gm/dL (32-36); Mean Corpuscular Hemoglobin 29 pg (26-34); Mean Corpuscular Volume 86 fL (80-100); Platelet Count* 285 K/uL (140-440); Red Blood Count 4.43 m/uL (4.00-5.20); White Blood Count* 14.89 K/uL (4.50-11.00)
[2024-08-22 12:21] LABS: Blood Urea Nitrogen* 12 mg/dL (5-24); Creatinine* 0.7 mg/dL (0.5-1.5); Est. Creatinine Clearance* 117.39; Estimated Glomerular Filt Rate 121 ml/min
[2024-08-22 12:22] LABS: Alanine Aminotransferase* 29 U/L (4-35); Aspartate Amino Transferase* 46 U/L (12-35)
[2024-08-22 12:24] LABS: Slide Review Reflex No
[2024-08-22 12:28] LABS: Magnesium* 4.7 mg/dL (1.5-2.6)
[2024-08-22] MEDS: SODIUM CHLORIDE 0.9 % (FLUSH) 10 ML SYRINGE IVF (13:41)
[2024-08-22 15:01] LABS: Rapid Plasma Reagin (RPR) Non Reactive (Non Reactive)
[2024-08-22] MEDS: LACTATED RINGERS 1000 ML 1,000 ML 75 ML IV (16:02)
[2024-08-22 18:14] LABS: Hematocrit 33.7 % (33.0-51.0); Hemoglobin* 11.5 gm/dL (12.0-16.0); Mean Corpuscular HGB Conc 34 gm/dL (32-36); Mean Corpuscular Hemoglobin 29 pg (26-34); Mean Corpuscular Volume 86 fL (80-100); Platelet Count* 233 K/uL (140-440); Red Blood Count 3.91 m/uL (4.00-5.20)
[2024-08-22 18:15] LABS: Slide Review Reflex No
[2024-08-22 18:24] LABS: Blood Urea Nitrogen* 12 mg/dL (5-24); Creatinine* 0.7 mg/dL (0.5-1.5); Est. Creatinine Clearance* 117.39; Estimated Glomerular Filt Rate 121 ml/min
[2024-08-22 18:25] LABS: Alanine Aminotransferase* 25 U/L (4-35); Aspartate Amino Transferase* 43 U/L (12-35)
--- NOTE | 2024-08-22 18:43 | P.OBPN_ITS ---
OB - PN:Subj Subjective Time Seen by Provider: 17:00 Date Seen: 08/22/24 Narrative: Alma is a 29yo G1, now P1 who was admitted for IOL at 36w4d due to pre- eclampsia with severe features by BP criteria. otherwise complicated by obesity, prediabetes, anxiety, depression and OCD. A Code White was called in the setting of nonreassuring FHR remote from delivery for recurrent and (at times) prolonged decelerations with slow recovery to a normal baseline with marked then minimal variability. During the immediate recovery, she was hypotensive and somnolent. This was surmised to be due to polypharmacy, underlying sleep apnea, and fatigue/distress from labor/delivery. Today, Alma is feeling much better. She still feels fatigue but more alert. Reports she is still trying to grasped what happened during the code white. However, she is happy that her baby, Donna, is doing well currently. Encouraged her to ask questions as they come up. Her pain is well controlled on oral pain medications. She is tolerating a regular diet. She has passed flatus. She is ambulating without difficulty. Lochia is scant. She is urinating without kunz. Patient denies chest pain, SOB, n/v, headache, RUQ pain, vision changes, dizziness. Will be on magnesium sulfate for 24 hours . BP inadequately controlled with nifedipine XL 30 mg b.i.d. this was increased to 60 mg b.i.d. Blood pressure has been better control throughout the day with the majority being in normal range after the dose change. Intermediate dose Lovenox was started as her hemoglobin this morning was 11.5 gm/dL. Highly likely Alma has sleep apnea. Will follow up with Dr. Walsh outpatient. Currently O2 stat above 94% but she does go to low 90s when she sleeps. OB - PN: Obj Exam Physical Exam: Vital signs: Temp Pulse Resp BP Pulse Ox O2 Del Method O2 Flow Rate 97.7 F 108 H 20 136/87 95 Room Air 1.5 08/22/24 17:00 08/22/24 18:17 08/22/24 18:17 08/22/24 18:17 08/22/24 17:00 08/22/24 17:00 08/22/24 06:35 Narrative: Physical exam: General: No acute distress Psych: Alert and oriented x4, full affect HEENT: Normocephalic, atraumatic Heart: Regular rate and rhythm, no murmur rub or gallop Lungs: Clear to auscultation bilaterally. Good respiratory efforts. Abdomen: Normoactive bowel sounds, soft, no tenderness, rebound, or guarding Incision(s): Appropriately tender to palpation. Silver dressing in place. Skin: No lesions or rashes Lower extremities: +1 bilateral lower extremity edema. Pelvic exam: Scant lochia on pad OB - PN: Obj Data Labs Labs: Laboratory Results - last 24 hr 08/20/24 08/21/24 08/22/24 16:05 23:05 00:50 WBC 10.63 10.51 RBC 4.74 4.00 Hgb 13.5 11.5 L Hct 40.6 34.3 MCV 86 86 MCH 29 29 MCHC 33 34 RDW Coeff of Cynthia 14.2 14.1 Plt Count 257 228 Neut % (Auto) 70.8 74.3 H Lymph % (Auto) 23.3 20.8 [place] % (Auto) 4.4 4.3 Eos % (Auto) 0.4 0.2 Baso % (Auto) 0.1 0.0 Neut # (Auto) 7.52 H 7.80 H Lymph # (Auto) 2.48 2.19 [place] # (Auto) 0.50 0.50 Eos # (Auto) 0.04 0.02 Baso # (Auto) 0.01 0.00 Abs Immat Gran (auto) 0.11 0.04 Imm/Tot Granulo (auto) 1.0 0.4 INR 0.77 L APTT 30 Fibrinogen 655 H BUN 12 Creatinine 0.8 Estimated Creat Clear 102.72 Estimated GFR 104 Magnesium 4.4 H* AST 34 ALT 22 RPR Screen Non Reactive 08/22/24 08/22/24 08/22/24 05:55 12:00 18:05 WBC 13.02 H 14.89 H 11.00 RBC 4.52 4.43 3.91 L Hgb 13.0 12.8 11.5 L Hct 38.8 37.9 33.7 MCV 86 86 86 MCH 29 29 29 MCHC 34 34 34 RDW Coeff of Cynthia Plt Count 230 285 233 Neut % (Auto) Lymph % (Auto) [place] % (Auto) Eos % (Auto) Baso % (Auto) Neut # (Auto) Lymph # (Auto) [place] # (Auto) Eos # (Auto) Baso # (Auto) Abs Immat Gran (auto) Imm/Tot Granulo (auto) INR APTT Fibrinogen BUN 11 12 Creatinine 0.8 0.7 Estimated Creat Clear 102.72 117.39 Estimated GFR 104 121 Magnesium 4.7 H* 4.7 H* AST 37 H 46 H ALT 23 29 RPR Screen OB - PN: A/P Delivery Assessment and Plan (1) Preeclampsia, severe: Status: Acute (2) Obesity complicating in third trimester: Problem details: BMI > 50.0 Status: Acute Assessment and Plan: Postoperative/post delivery Review: - Admitted for: Induction of labor due to severe preeclampsia - Surgical procedure: Emergency delivery - Skin incision: Pfannenstiel - Closure: Sutures - Estimated blood loss: 509 mL - Intraoperative Complications: None - Urine output: Adequate - Preop/pre delivery H/H: 12.8/37.9 - Postop/post delivery H/H: 11.5/33.7 Pre-Eclampsia with severe features - Based on severe range in blood pressures - BPs currently 120-130s/80s - Symptoms: none - Magnesium: On magnesium sulfate for seizure prophylaxis - Antihypertensives: Nifedipine XL 60 mg b.i.d - Pre-eclampsia labs on 08/22/24 @ 1800: Hgb 11.5 Plt 233 Cr 0.7 ALT 25 AST 43 Postoperative care: - Diet: Advance as tolerated - Fluid: Encourage oral intake - Activity: Encourage ambulation and incentive spirometry - Pain: Acetaminophen, Ibuprofen, and oxycodone - DVT prophylaxis: SCDs and TEDs when not ambulating. Ppx Lovenox 40 mg Q12H while inpateint Dispo: Patient is POD#1. Need the following milestones: off magnesium suflate and BP monitoring thereafter. Anticipate discharge POD#3.
[2024-08-22 18:47] LABS: Magnesium* 4.1 mg/dL (1.5-2.6)
[2024-08-23] VITALS (9 sets, daily range): BP systolic 110–150; BP diastolic 66–101; PULSE 100–117; RESP 16–22; TEMP 36.6–36.7; O2SAT 95–98
[2024-08-23 00:53] LABS: Hemoglobin* 11.4 gm/dL (12.0-16.0); Mean Corpuscular HGB Conc 34 gm/dL (32-36); Mean Corpuscular Hemoglobin 29 pg (26-34); Mean Corpuscular Volume 87 fL (80-100); Platelet Count* 233 K/uL (140-440); Red Blood Count 3.93 m/uL (4.00-5.20); White Blood Count* 11.76 K/uL (4.50-11.00)
[2024-08-23 01:07] LABS: Alanine Aminotransferase* 25 U/L (4-35); Aspartate Amino Transferase* 41 U/L (12-35); Blood Urea Nitrogen* 12 mg/dL (5-24); Creatinine* 0.6 mg/dL (0.5-1.5); Est. Creatinine Clearance* 136.96; Estimated Glomerular Filt Rate 126 ml/min; Magnesium* 3.1 mg/dL (1.5-2.6); Slide Review Reflex No
[2024-08-23] MEDS: KETOROLAC 30 MG/ML inj IVP ×2 (01:23→08:27)
[2024-08-23 06:54] LABS: Hematocrit 34.6 % (33.0-51.0); Hemoglobin* 11.5 gm/dL (12.0-16.0); Mean Corpuscular HGB Conc 33 gm/dL (32-36); Mean Corpuscular Hemoglobin 29 pg (26-34); Mean Corpuscular Volume 87 fL (80-100); Platelet Count* 232 K/uL (140-440); Red Blood Count 3.96 m/uL (4.00-5.20); White Blood Count* 9.79 K/uL (4.50-11.00)
[2024-08-23 06:57] LABS: Slide Review Reflex No
[2024-08-23 07:13] LABS: Alanine Aminotransferase* 24 U/L (4-35); Aspartate Amino Transferase* 42 U/L (12-35); Blood Urea Nitrogen* 10 mg/dL (5-24); Creatinine* 0.6 mg/dL (0.5-1.5); Est. Creatinine Clearance* 136.96; Estimated Glomerular Filt Rate 126 ml/min
--- NOTE | 2024-08-23 08:19 | PM.OBPNVD1 ---
OB - PN:Subj Subjective Time Seen by Provider: 07:45 Date Seen: 08/23/24 Patient comments OB post-: no complaints, pain well controlled, tolerating diet and flatus present feeding status: breast and bottle feeding Narrative: Alma reports that her pain is well controlled. No nausea or vomiting. She is tolerating a regular diet and passing flatus. Magnesium was discontinued last night at 11:31 p.m. she had preeclampsia labs drawn this morning which were all normal except her AST was 42. Last AST was 41. I will order another set of labs for tomorrow morning. The patient's blood pressure has increased midnight on nifedipine ER 60 mg b.i.d. I added labetalol 200 mg t.i.d. and the patient is aware. Alma is planning on staying in the hospital at least 1 more night. OB - PN: Obj Exam Physical Exam: Vital signs: Temp Pulse Resp BP Pulse Ox O2 Del Method O2 Flow Rate 97.9 F 107 H 16 133/101 H 96 Nasal Cannula 1.5 08/23/24 05:26 08/23/24 05:26 08/23/24 05:26 08/23/24 05:40 08/23/24 05:26 08/23/24 05:26 08/23/24 05:26 Narrative: General: Pleasant, woman in no acute distress. Vital signs: Included in the electronic medical record. Of note her last blood pressure at 5:40 a.m. was 133/101 Heart: Regular rate and rhythm without gallop, rub or murmur. Chest: Clear to auscultation bilaterally. Abdomen: Obese, nontender, nondistended with normal bowel sounds throughout. Uterus is 2-3 cm below the umbilicus in the midline. Incision: Silver-containing dressing in place and clean, dry and intact. Extremities: 1+ bilateral lower extremity edema to the mid murcia. OB - PN: Obj Data Labs Labs: Laboratory Results - last 24 hr 08/20/24 08/22/24 08/22/24 16:05 12:00 18:05 WBC 14.89 H 11.00 RBC 4.43 3.91 L Hgb 12.8 11.5 L Hct 37.9 33.7 MCV 86 86 MCH 29 29 MCHC 34 34 Plt Count 285 233 BUN 12 12 Creatinine 0.7 0.7 Estimated Creat Clear 117.39 117.39 Estimated GFR 121 121 Magnesium 4.7 H* 4.1 H* AST 46 H 43 H ALT 29 25 RPR Screen Non Reactive 08/23/24 08/23/24 00:51 06:40 WBC 11.76 H 9.79 RBC 3.93 L 3.96 L Hgb 11.4 L 11.5 L Hct 34.0 34.6 MCV 87 87 MCH 29 29 MCHC 34 33 Plt Count 233 232 BUN 12 10 Creatinine 0.6 0.6 Estimated Creat Clear 136.96 136.96 Estimated GFR 126 126 Magnesium 3.1 H 2.0 AST 41 H 42 H ALT 25 24 RPR Screen OB - PN: A/P Delivery Assessment and Plan (1) Preeclampsia, severe: Status: Acute Assessment and Plan: 1. Another set of labs to be checked tomorrow. 2. Added labetalol 200 mg p.o. t.i.d. to control blood pressure in addition to nifedipine ER 60 mg b.i.d.. 3. Continue postop care (2) Obesity complicating in third trimester: Problem details: BMI > 50.0 Status: Acute
[2024-08-23] MEDS: LABETALOL HCL 100 MG TABLET 200 MG PO ×2 (08:27→16:30)
[2024-08-23] MEDS: NIFEdipine ER 30 MG TAB 60 MG PO ×2 (08:28→21:54)
[2024-08-23] MEDS: DOCUSATE SODIUM 100 MG CAPSULE PO ×2 (08:28→21:55)
[2024-08-23] MEDS: VENLAFAXINE ER 75 MG CAPSULE 225 MG PO (08:29)
[2024-08-23] MEDS: BUSPIRONE 10 MG TABLET PO ×2 (08:29→21:55)
[2024-08-23] MEDS: ENOXAPARIN 40 MG/0.4 ML INJ SUBCUT ×2 (08:31→21:52)
[2024-08-23] MEDS: ACETAMINOPHEN 500 MG TABLET 1000 MG PO ×3 (09:38→23:21)
[2024-08-23 12:23] LABS: Hematocrit 33.1 % (33.0-51.0); Hemoglobin* 10.9 gm/dL (12.0-16.0); Mean Corpuscular HGB Conc 33 gm/dL (32-36); Mean Corpuscular Hemoglobin 29 pg (26-34); Mean Corpuscular Volume 87 fL (80-100); Platelet Count* 234 K/uL (140-440); Red Blood Count 3.81 m/uL (4.00-5.20)
[2024-08-23 12:24] LABS: Slide Review Reflex No
[2024-08-23 12:32] LABS: Alanine Aminotransferase* 25 U/L (4-35); Aspartate Amino Transferase* 40 U/L (12-35); Blood Urea Nitrogen* 10 mg/dL (5-24); Creatinine* 0.7 mg/dL (0.5-1.5); Est. Creatinine Clearance* 117.39; Estimated Glomerular Filt Rate 121 ml/min; Magnesium* 1.7 mg/dL (1.5-2.6)
[2024-08-23] MEDS: IBUPROFEN 600 MG TABLET PO ×2 (16:35→23:22)
[2024-08-23 18:09] LABS: Hematocrit 32.6 % (33.0-51.0); Hemoglobin* 10.7 gm/dL (12.0-16.0); Mean Corpuscular HGB Conc 33 gm/dL (32-36); Mean Corpuscular Hemoglobin 29 pg (26-34); Mean Corpuscular Volume 88 fL (80-100); Platelet Count* 227 K/uL (140-440); Red Blood Count 3.71 m/uL (4.00-5.20); White Blood Count* 10.93 K/uL (4.50-11.00)
[2024-08-23 18:19] LABS: Slide Review Reflex No
[2024-08-23 18:26] LABS: Alanine Aminotransferase* 26 U/L (4-35); Aspartate Amino Transferase* 40 U/L (12-35); Blood Urea Nitrogen* 14 mg/dL (5-24); Creatinine* 0.7 mg/dL (0.5-1.5); Est. Creatinine Clearance* 117.39; Estimated Glomerular Filt Rate 121 ml/min
[2024-08-23 18:27] LABS: Magnesium* 1.4 mg/dL (1.5-2.6)
[2024-08-23] MEDS: LABETALOL HCL 100 MG TABLET 400 MG PO (23:19)
[2024-08-24 04:36] VITALS: BP 102/71; PULSE 101; RESP 20; TEMP 36.6; O2SAT 96
[2024-08-24 07:51] VITALS: BP 116/81; PULSE 99; RESP 20; TEMP 36.9
[2024-08-24 08:11] LABS: Alanine Aminotransferase* 27 U/L (4-35); Aspartate Amino Transferase* 62 U/L (12-35)
[2024-08-24 08:29] LABS: Hematocrit 33.6 % (33.0-51.0); Mean Corpuscular HGB Conc 33 gm/dL (32-36); Mean Corpuscular Hemoglobin 29 pg (26-34); Mean Corpuscular Volume 88 fL (80-100); Platelet Count* 228 K/uL (140-440); Red Blood Count 3.83 m/uL (4.00-5.20); White Blood Count* 8.69 K/uL (4.50-11.00)
[2024-08-24 08:34] LABS: Slide Review Reflex No
[2024-08-24 09:08] LABS: Blood Urea Nitrogen* 9 mg/dL (5-24); Creatinine* 0.6 mg/dL (0.5-1.5); Est. Creatinine Clearance* 136.96; Estimated Glomerular Filt Rate 126 ml/min
[2024-08-24] MEDS: LABETALOL HCL 100 MG TABLET 400 MG PO (09:11)
[2024-08-24] MEDS: NIFEdipine ER 30 MG TAB 60 MG PO (09:12)
[2024-08-24] MEDS: BUSPIRONE 10 MG TABLET PO (09:14)
[2024-08-24] MEDS: DOCUSATE SODIUM 100 MG CAPSULE PO (09:14)
[2024-08-24] MEDS: IBUPROFEN 600 MG TABLET PO (09:16)
[2024-08-24] MEDS: VENLAFAXINE ER 75 MG CAPSULE 225 MG PO (09:17)
[2024-08-24] MEDS: ENOXAPARIN 40 MG/0.4 ML INJ SUBCUT (09:18)
--- NOTE | 2024-08-24 10:36 | PM.OBDSVD1 ---
DS: Providers Provider Date Seen: 08/24/24 Date of admission: 08/20/24 10:05 Primary care physician: Bethany Walsh MD Admitting Clinician: Mary Carter MD Attending Physician on discharge: Mary Carter MD Date of Discharge: 08/24/24 DS: Diagnosis Discharge Diagnosis (1) Status post primary low transverse section: Status: Acute Problem details: Code white. 36w4d. Boy. Apgars 4/6/6. [place] (2) Preeclampsia, severe: Status: Acute (3) Obesity complicating in third trimester: Status: Acute Problem details: BMI > 50.0 (4) Generalized anxiety disorder: Status: Acute (5) OCD (obsessive compulsive disorder): Status: Acute (6) Chronic major depressive disorder: Status: Acute Exam Narrative: Exam Narrative: General: Pleasant, no acute distress Heart: Regular rate and rhythm, no murmur or gallop Lungs: Clear to auscultation bilaterally Abdomen: Soft, nontender, fundus well below umbilicus, normaoactive bowel sounds, silver dressing dry and intact Lower extremities: 2-3+ edema to knees bilaterally, no erythema Const: Vital Signs, click to edit/add: Vital Signs - 24 hr 08/23/24 12:18 08/23/24 16:31 08/23/24 19:52 Temperature 97.9 F 98.1 F Pulse Rate [Pulse Oximeter] 117 H 112 H 103 H Respiratory Rate 22 20 16 Blood Pressure [Le ft Arm] 119/78 132/98 H 124/85 Pulse Oximetry 95 97 96 Oxygen Delivery Me thod Room Air Room Air Room Air 08/23/24 23:10 08/24/24 04:36 08/24/24 07:51 Temperature 97.8 F 98.5 F Pulse Rate [Pulse Oximeter] 116 H 101 H 99 Respiratory Rate 20 20 20 Blood Pressure [Le ft Arm] 129/67 102/71 116/81 Pulse Oximetry 98 96 Oxygen Delivery Me thod Room Air Room Air OB - DS: Summary Hospital Course Hospital Course: Alma is a 29-year-old G1 now P 0-1-0-1 woman who is status post primary low-transverse delivery on 08/22/2024 at 36 weeks, 5 days gestation for indication of nonreassuring status in the setting of induction of labor for preeclampsia with severe features. Diagnosis of this severity was based on blood pressure elevation. OB PROBLEM LIST: # Preeclampsia Severe gestational htn diagnosed at 29+ wks on 07/03/24 transferred to Dannielle Alan ([facility]) BMTZ 07/03, 07/04 [facility] started the patient on labetalol (400mg TID) and nifedipine (90mg daily) to treat GTHN (not the standard of care) Preeclampsia w/o severe features diagnosed on 07/23 w/ 24hr urine protein = 336mg Referral to Dr. Miller for obesity on 08/01 then urgently consulted [facility] due to preeclampsia Admitted to [facility] 08/01-08/04/24: Antihypertensive medications stopped on 08/01 Second course of BMTZ 08/01, 08/02 IOL at 37wks or sooner for severe features Labs 08/13/24: Hgb 13.7, Plts 217K, Creat 0.6, BUN 10, AST 44, ALT 26 #Pre BMI 44.56 Anesthesia consultation requested 08/06/24 Transfer of care to [facility] on 08/06/2024 at 34w3d BMI on 08/06 51.8 Hgb A1C not included in labs from the [facility]. 06/10/24: 1hr GTT @ 26w2d 144 06/17/24: 3hr GTT @ 27w2d all normal (88, 157, 120, 78) # Anxiety, depression and OCD On Buspar 10mg PO BID and Venlafaxine 225mg daily Anxiety not well controlled Followed by psychiatry Magnesium sulfate was started for seizure prophylaxis at admission. Nifedipine ER 30 mg daily was started during her induction course. She had cervical ripening with vaginal Cytotec, followed by Cook catheter. She had Pitocin and AROM for induction of labor. She had epidural for pain control. Shortly after AROM, she developed recurrent late decelerations which were sometimes prolonged. She had emergent for this indication. Primary low-transverse was uncomplicated with a QBL of 509 mL. She was delivered of a male , weight 2480 g, Apgars 4, 6, and 6. In her immediate postoperative course, she was found to be hypotensive and somnolent, which was ultimately attributed to polypharmacy, underlying sleep apnea, and emotional distress. She was maintained on magnesium sulfate for seizure prophylaxis for 24 hours . Her antihypertensive regimen was adjusted as of yesterday to nifedipine ER 60 mg b.i.d. and labetalol 200 mg t.i.d.. HELLP labs were notable for an elevated AST less than 2 times the upper limit of normal. Creatinine and platelets were normal. Repeat prior to discharge today shows downtrending AST. Today, on postoperative day 3, she is doing ok. She is still working through postoperative pain. Her infant son has just been started on antibiotics after sepsis workup and will be staying for the next two days. She is working on . She is ambulating some. She denies heavy bleeding. She is tolerating regular diet and reports flatus. Peripartum Data Procedures: Procedures Operation Date: 08/21/24 23:30 Actual Procedure Side Surgeon p Section Janet Sheikh MD [place] Infant Gender: Male Time Spent with Patient Time attestation: Total time spent providing and/or coordinating discharge services: Discharge Plan Discharge Disposition: Home, Self-Care Date of Admission: 08/20/24 10:05 Attending Provider on Discharge: Tasneem Miller Primary Care Provider: Bethany Walsh Condition: Stable Anticipated Discharge Date/Time: 08/24/24 12:51 Discharge Medications: New ibuprofen 600 mg Tablet 600 mg PO Q6H PRN (Reason: Pain) Qty: 60 0RF labetalol 100 mg Tablet 400 mg PO TID Qty: 90 0RF nifedipine 30 mg Tablet Extended Release 60 mg PO BID Qty: 90 0RF oxycodone 5 mg Tablet 5 - 10 mg PO Q4H PRN (Reason: Pain) Qty: 25 0RF Lanolin (HPA) 100 % Cream 1 applic topical Q1H PRNQty: 0 0RF acetaminophen 500 mg Tablet 1,000 mg PO Q6H PRN (Reason: Pain) Qty: 0 0RF Continued venlafaxine 75 mg capsule,extended release 24hr 225 mg PO DAILY docosahexaenoic acid [ DHA] 1 cap PO DAILY ondansetron 4 mg tablet,disintegrating 4 mg PO Q8H PRN (Reason: nausea and vomiting) Qty: 20 0RF buspirone 10 mg tablet 10 mg PO BID famotidine [Pepcid] 20 mg tablet 20 mg PO DAILY aspirin [Adult Aspirin Regimen] 81 mg tablet,delayed release (DR/EC) 81 mg PO DAILY polyethylene glycol 3350 17 gram powder in packet 17 g PO DAILY docusate sodium [Colace] 100 mg capsule 100 mg PO DAILY pyridoxine (vitamin B6) 100 mg tablet 100 mg PO DAILY Discontinued Unisom (doxylamine) 25 mg tablet 12.5 mg PO Q6H PRN Discharge Orders: Discharge Order (Routine); Ordered 08/24/24 Ordered By: Tasneem Miller Patient Education: OB High Blood Pressure DC, OB Over the Counter Medication Information, OB /Bottle Feeding, OB /Breast Feeding Additional Instructions: Discharge instructions were reviewed with the patient including signs and symptoms of infection and home going medications Lifting Restrictions: 20 pounds for 6 weeks No not submerge incision under water X 2 weeks? Nothing vaginally for 6 weeks: no tampons or intercourse Do not drive while taking narcotic pain medication(s) Off Work or School for 8 weeks [facility] for a BP check on Monday 08/28 Call with any BP greater than or equal to 160/110, or persistent BP greater than or equal to 150/100 Severe headache that doesn't improve after taking medications Changes in vision, including temporary loss of vision, blurred vision, and/or light sensitivity Upper abdominal pain (usually under ribs on the right side) Optional 2-week visit: incision check, discuss infant feeding concerns, review control options and screen for anxiety/depression. 6-week visit for an annual exam. consultation services are available to all mothers and babies for the first year after delivery.? To make an appointment, please call [phone]. Discharge Diet: Regular Follow Up Appointments: [facility] [Provider Group] Forms: [facility] Info Instructions
[2024-08-24 11:52] LABS: Hemoglobin* 11.2 gm/dL (12.0-16.0); Mean Corpuscular HGB Conc 33 gm/dL (32-36); Mean Corpuscular Hemoglobin 29 pg (26-34); Mean Corpuscular Volume 88 fL (80-100); Platelet Count* 246 K/uL (140-440); Red Blood Count 3.88 m/uL (4.00-5.20); White Blood Count* 9.67 K/uL (4.50-11.00)
[2024-08-24 11:53] LABS: Slide Review Reflex No
[2024-08-24 12:12] VITALS: BP 113/79; PULSE 110; RESP 16; TEMP 36.8; O2SAT 95
[2024-08-24 12:17] LABS: Alanine Aminotransferase* 30 U/L (4-35); Aspartate Amino Transferase* 42 U/L (12-35); Blood Urea Nitrogen* 9 mg/dL (5-24); Creatinine* 0.7 mg/dL (0.5-1.5); Est. Creatinine Clearance* 117.39; Estimated Glomerular Filt Rate 121 ml/min
[2024-08-24] MEDS: ACETAMINOPHEN 500 MG TABLET 1000 MG PO (13:11)
== END 2024-08-24 13:55 | disposition home or self-care (01) | DRG 788 ==
LOC: OB OUT 10:07 → OB 10:07
PROVIDERS: Obstetrics & Gynecology; Admitting Provider Obstetrics & Gynecology; PCP Student in an Organized Health Care Education/Training Program; Visit Provider Obstetrics & Gynecology
PROC: 10D00Z1 Extraction of Products of Conception, Low, Open Approach (ICD-10-PCS; CPT 59514; principal; 2024-08-21 23:30)
DX: O14.14 Severe pre-eclampsia complicating childbirth (principal); O76 Abnormality in fetal heart rate and rhythm complicating labor and delivery; O75.0 Maternal distress during labor and delivery; I95.89 Other hypotension; R40.0 Somnolence; R09.02 Hypoxemia; O99.214 Obesity complicating childbirth; E66.813 Obesity, class 3; O99.344 Other mental disorders complicating childbirth; F42.9 Obsessive-compulsive disorder, unspecified; F41.1 Generalized anxiety disorder; F32.9 Major depressive disorder, single episode, unspecified; G47.30 Sleep apnea, unspecified; Z3A.36 36 weeks gestation of pregnancy; Z37.0 Single live birth
CPT/HCPCS: 01967; 01968; 36415; 59200; 82565; 82570; 82803; 83735; 84156; 84450; 84460; 84520; 85025; 85027; 85384; 85610; 85730; 86592; 86850; 86900; 86901; 88307; 94761; 99140; A4314; A9270; C1726; J0456; J0665; J0666; J1100; J1650; J1885; J2270; J2274; J2371; J2405; J2590; J2795; J3010; J3105; J3475; J7120